=== PATIENT | female | born 1965 | race Caucasian/White ===

== ENCOUNTER 2020-09-10 13:34 | Observation (INO) | payer OTHER ==
--- OUTSIDE RECORDS SUMMARY | 2020-09-10 13:37 | XMS REPORT | Continuity of Care Document ---
:1965 Author Organization [facility] t Address [address] [place] [address] Care Team Providers Name Role Phone Juani Saldaña MD Attending Clinician Doctor Unassigned, Name Attending Clinician Unavailable Eulalia Sandoval Attending Clinician Problems This patient has no known problems. Allergies, Adverse Reactions, Alerts This patient has no known allergies or adverse reactions. Medications This patient has no known medications. Procedures This patient has no known procedures. Encounters Start End Encounter Admission Attending Care Care Encounter Source Date/Time Date/Time Type Type Clinicians Facility Department ID 2019-11-22 2019-11-22 Emergency CLOTILDE Saldaña [id number] 05:23:00 07:42:00 Arvind Gloria Bryce [id number] [place] [id number] [place] [id number] 2019-11-22 2019-11-22 Orders Doctor RIOS [id number] 00:00:00 00:00:00 Only UnassignedHAL [id number] [place] [facility] [id number] 2019-05-11 2019-05-11 Orders Doctor RIOS [id number] 00:00:00 00:00:00 Only UnassignedHAL [id number] [place] [facility] [id number] 2019-04-28 2019-04-28 Office CLOTILDE Mcfarland [id number] 14:21:09 14:36:09 Visit [facility] [id number] Surgical [id number] [place] [id number] [address] Results This patient has no known results.
--- NOTE | 2020-09-10 14:54 | RAD REPORT ---
EXAM DESCRIPTION: RAD - Chest Single View - 09/10/2020 2:39 pm CLINICAL HISTORY: Chest pain;Dyspnea Chest pain. COMPARISON: Chest Single View dated 05/22/2016; ABDOMEN 1 VIEW KUB dated 04/14/2013 FINDINGS: Portable technique limits examination quality. The lungs are grossly clear. The heart is normal in size. No displaced fractures. IMPRESSION: No acute intrathoracic process suspected.
[2020-09-10 15:13] LABS: Protime INR 1.01
[2020-09-10 15:15] LABS: Absolute Lymphocytes (CBC) 1.3 K/uL (0.7-4.9); Basophils % 0.3 % (0-1.3); Hematocrit 33.6 % (36.0-45.0); Lymphocytes % 25.2 % (15.3-44.8); MPV 8.2 fL (7.6-11.3); RBC Red Blood Cell Count 3.96 M/uL (3.86-4.86)
[2020-09-10 15:23] LABS: ALT/SGPT 21 U/L (12-78); AST/SGOT 14 U/L (15-37); Albumin 3.6 g/dL (3.4-5.0); Alkaline Phosphatase 70 U/L (45-117); BUN Blood Urea Nitrogen 11 mg/dL (7-18); Bicarbonate 29 mmol/L (21-32); Bilirubin Direct 0.1 mg/dL (0-0.2); Bilirubin Total 0.6 mg/dL (0.2-1.0); Glucose Level 108 mg/dL (74-106); Magnesium 2.2 mg/dL (1.8-2.4); NT PRO-BNP 264 pg/mL (<125); Protein, Total 7.2 g/dL (6.4-8.2); Sodium Level 140 mmol/L (136-145); Troponin (Emerg Dept Use Only) < 0.02 ng/mL (0.0-0.045)
--- NOTE | 2020-09-10 16:06 | RAD REPORT ---
EXAM DESCRIPTION: CT - Chest For Pe Angio - 09/10/2020 3:50 pm CLINICAL HISTORY: Chest pain. CHEST PAIN COMPARISON: MR BREAST BILAT W WO CONTRAST dated 01/03/2009 TECHNIQUE: CT angiogram of the pulmonary arteries was performed with MIP. All CT scans are performed using dose optimization technique as appropriate and may include automated exposure control or mA/KV adjustment according to patient size. FINDINGS: No evidence of pulmonary thromboembolism. No acute aortic finding demonstrated. The lungs are clear. No significant pericardial or pleural fluid. No concerning bony finding. IMPRESSION: No evidence of pulmonary thromboembolism. No acute lung findings.
--- NOTE | 2020-09-10 18:22 | ER ---
Nurse's Notes [facility] Name: Vanessa Haney Age: 54 yrs Sex: Female : 1965 Arrival Date: 09/10/2020 Time: 13:35 Bed 7 Private MD: Diagnosis: Chest pain, unspecified Presentation: 09/10 13:40 Chief complaint: Patient states: "I am having some chest pain and acid reflux, hurts to jd3 breath in, and a weird numbness on both my arms. the stomach pain and numbness started today, but the chest pain has been going on for a day or so.". Coronavirus screen: At this time, the client does not indicate any symptoms associated with coronavirus-19. Ebola Screen: Patient negative for fever greater than or equal to 101.5 degrees Fahrenheit, and additional compatible Ebola Virus Disease symptoms. Initial Sepsis Screen: Does the patient meet any 2 criteria? No. Patient's initial sepsis screen is negative. Does the patient have a suspected source of infection? No. Patient's initial sepsis screen is negative. Risk Assessment: Do you want to hurt yourself or someone else? Patient reports no desire to harm self or others. Onset of symptoms was September 09, 2020. 13:40 Method Of Arrival: Ambulatory [facility] 13:40 Acuity: LAUREN 3 jd3 13:47 Care prior to arrival: Medication(s) given: ASA, 81 mg, x 4. 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 - Social history:: Smoking status: Patient/guardian denies using tobacco, the patient reports quitting approximately 11 years ago. - Family history:: not pertinent. - Hospitalizations: : No recent hospitalization is reported. Screenin:44 Abuse screen: Denies threats or abuse. Denies injuries from another. Nutritional ph screening: No deficits noted. Tuberculosis screening: No symptoms or risk factors identified. Fall Risk None identified. Assessment: 14:53 General: Appears in no apparent distress. comfortable, well groomed, Behavior is calm, ph cooperative, appropriate for age, Reports fatigue for 2-3 days. Pain: Complains of pain in mid-sternal area Pain does not radiate. Pain began 1 day ago. Neuro: Level of Consciousness is awake, alert, obeys commands, Oriented to person, place, time, situation, Reports paresthesias in right arm and left arm. Cardiovascular: Reports chest pain, fatigue, nausea, shortness of breath, Denies palpitations, syncope, vomiting, Capillary refill < 3 seconds in bilateral fingers Patient's skin is warm and dry. Chest pain is located in substernal area. Respiratory: Reports shortness of breath at rest pain with respiration Airway is patent Respiratory effort is even, unlabored, Respiratory pattern is regular, symmetrical. GI: Reports nausea, Patient currently denies abdominal pain, vomiting. Derm: Skin is intact, is healthy with good turgor, Skin is pink, warm \\T\\ dry. 16:30 Reassessment: Patient appears in no apparent distress at this time. Patient and/or ph family updated on plan of care and expected duration. Pain level reassessed. Patient is alert, oriented x 3, equal unlabored respirations, skin warm/dry/pink. 18:07 Reassessment: Patient appears in no apparent distress at this time. Patient and/or ph family updated on plan of care and expected duration. Pain level reassessed. Patient is alert, oriented x 3, equal unlabored respirations, skin warm/dry/pink. Vital Signs: 13:46 BP 122 / 72; Pulse 65; Resp 16 S; Temp 97.3(TE); Pulse Ox 99% on R/A; Weight 83.01 kg jd3 (R); Height 5 ft. 7 in. (170.18 cm) (R); Pain 4/10; 14:30 BP 110 / 64; Pulse 56; Resp 16; Pulse Ox 99% on R/A; ph 15:45 BP 99 / 57; Pulse 54; Resp 18; Pulse Ox 98% on R/A; ph 16:41 BP 107 / 63; Pulse 51; Resp 18; Pulse Ox 100% on R/A; ph 18:07 BP 102 / 74; Pulse 51; Resp 16; Temp 97.5; Pulse Ox 98% on R/A; ph 20:55 BP 97 / 64; Pulse 69; Resp 16; Pulse Ox 100% on R/A; jm8 13:46 Body Mass Index 28.66 (83.01 kg, 170.18 cm) jd3 ED Course: 13:35 Patient arrived in ED. as 13:42 Triage completed. jd3 13:47 Arm band placed on. jd3 13:55 Kamron Cook MD is Attending Physician. rn 13:57 Gaby Carmen, JEANETTE is Primary Nurse. ph 14:38 XRAY Chest (1 view) In Process Unspecified. EDMS 15:36 PT-INR Sent. sv 15:36 NT PRO-BNP Sent. sv 15:36 Magnesium Sent. sv 15:36 LFT's Sent. sv 15:36 CBC with Diff Sent. sv 15:36 Basic Metabolic Panel Sent. sv 15:50 CT Chest For PE Angio In Process Unspecified. EDMS 16:44 Patient has correct armband on for positive identification. Bed in low position. Call ph light in reach. Side rails up X 1. flat ironer on. Pulse ox on. NIBP on. Door closed. Noise minimized. Warm blanket given. 16:44 Patient maintains SpO2 saturation greater than 95% on room air. ph 18:07 No provider procedures requiring assistance completed. ph 18:21 Homero Snyder is Hospitalizing Provider. rn 18:21 Som Whitlock DO is Hospitalizing Provider. rn 21:53 Patient admitted, IV remains in place. marshal Administered Medications: 19:25 Drug: Aspirin Chewable Tablet 324 mg Route: PO; marshal 20:59 Follow up: Response: No adverse reaction marshal Outcome: 18:21 Decision to Hospitalize by Provider. rn 21:39 Patient left the ED. rr5 21:53 Admitted to Med/surg accompanied by nurse, via stretcher, with chart, Report called to marshal Woodall RN 21:53 Condition: good 21:53 Instructed on the need for admit. Signatures: Dispatcher [employer] EDElena Howell RN RN sv Martinez, Amelia as Kamron Cook ph D, MD MD rn Hall, Patricia, RN RNavies, Jonathon, RN RN j Harjinder Pastrana, RN RN rr5 Homero Kim, RN RN jm8
--- NOTE | 2020-09-10 18:23 | EDPHYS ---
Physician Documentation [facility] Name: Vanessa Hanye Age: 54 yrs Sex: Female : 1965 Arrival Date: 09/10/2020 Time: 13:35 Bed 7 Private MD: ED Physician Kamron Cook HPI: 09/10 14:39 This 54 yrs old Female presents to ER via Ambulatory with complaints of Chest rn Pain, Arm Pain, Back Pain. 14:39 The patient or guardian reports chest pain that is located primarily in the substernal rn area. Onset: yesterday. The pain radiates to both arms, Associated signs and symptoms: Pertinent positives: cough, Pertinent negatives: lower extremity swelling, lightheadedness, near syncope, palpitations, syncope, vomiting. The chest pain is described as a pressure, sharp. Duration: The patient or guardian reports multiple episodes, that are intermittent. Modifying factors: The symptoms are alleviated by nothing. the symptoms are aggravated by deep breath. Severity of pain: At its worst the pain was moderate in the emergency department the pain has improved. The patient has experienced similar episodes in the past. The patient has not recently seen a physician. Reports 1-2 days of chest pain, substernal, radiates to back and assoc with numbness both arms, no trauma, no fever, + mild cough. No hx of dvt/PE. No abd pain. Feels like acid reflux acting up as well. . 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 - Social history:: Smoking status: Patient/guardian denies using tobacco, the patient reports quitting approximately 11 years ago. - Family history:: not pertinent. - Hospitalizations: : No recent hospitalization is reported. ROS: 14:39 Constitutional: Negative for fever, chills, and weight loss, Eyes: Negative for injury, rn pain, redness, and discharge, ENT: Negative for injury, pain, and discharge, Neck: Negative for injury, pain, and swelling, Cardiovascular: Negative for palpitations, and edema, Respiratory: Negative for wheezing Abdomen/GI: Negative for abdominal pain, nausea, vomiting, diarrhea, and constipation, Back: Negative for injury and pain, : Negative for injury, bleeding, discharge, and swelling, MS/Extremity: Negative for injury and deformity, Skin: Negative for injury, rash, and discoloration, Neuro: Negative for headache, weakness, and seizure. Exam: 14:39 Constitutional: This is a well developed, well nourished patient who is awake, alert, rn and in no acute distress. Head/Face: Normocephalic, atraumatic. Eyes: Periorbital areas with no swelling, redness, or edema. Cardiovascular: Regular rate and rhythm. No pulse deficits. Respiratory: No increased work of breathing, no retractions or nasal flaring. Abdomen/GI: Soft, non-tender Skin: Warm, dry with normal turgor. Normal color with no rashes, no lesions, and no evidence of cellulitis. MS/ Extremity: Pulses equal, no cyanosis. Neurovascular intact. Full, normal range of motion. Equal circumference. Neuro: Awake and alert, GCS 15, oriented to person, place, time, and situation. Cranial nerves II-XII grossly intact. Motor strength 5/5 in all extremities. Sensory grossly intact. Vital Signs: 13:46 BP 122 / 72; Pulse 65; Resp 16 S; Temp 97.3(TE); Pulse Ox 99% on R/A; Weight 83.01 kg jd3 (R); Height 5 ft. 7 in. (170.18 cm) (R); Pain 4/10; 14:30 BP 110 / 64; Pulse 56; Resp 16; Pulse Ox 99% on R/A; ph 15:45 BP 99 / 57; Pulse 54; Resp 18; Pulse Ox 98% on R/A; ph 16:41 BP 107 / 63; Pulse 51; Resp 18; Pulse Ox 100% on R/A; ph 18:07 BP 102 / 74; Pulse 51; Resp 16; Temp 97.5; Pulse Ox 98% on R/A; ph 20:55 BP 97 / 64; Pulse 69; Resp 16; Pulse Ox 100% on R/A; jm8 13:46 Body Mass Index 28.66 (83.01 kg, 170.18 cm) jd3 MDM: 13:56 Patient medically screened. rn 18:19 Differential diagnosis: acute myocardial infarction, acute pericarditis, anxiety, rn coronary artery disease costochondritis, pericarditis, pleurisy, pneumothorax, pulmonary embolus, stable angina, unstable angina. The patient was given aspirin in the Emergency Department. 18:20 Data reviewed: vital signs, nurses notes, lab test result(s), EKG, radiologic studies, rn CT scan, plain films, and as a result, I will admit patient. Counseling: I had a detailed discussion with the patient and/or guardian regarding: the historical points, exam findings, and any diagnostic results supporting the discharge/admit diagnosis, lab results, radiology results, the need for further work-up and treatment in the hospital. Admission orders: after a detailed discussion of the patient's condition and case, the admit orders are written by me. 09/10 14:17 Order name: Basic Metabolic Panel rn 09/10 14:17 Order name: CBC with Diff rn 09/10 14:17 Order name: LFT's rn 09/10 14:17 Order name: Magnesium rn 09/10 14:17 Order name: NT PRO-BNP rn 09/10 14:17 Order name: PT-INR rn 09/10 14:17 Order name: Troponin (emerg Dept Use Only); Complete Time: 15:27 09/10 14:17 Order name: Flu; Complete Time: 16:19 rn 09/10 14:17 Order name: Basic Metabolic Panel; Complete Time: 15:27 EDWV 09/10 14:17 Order name: CBC with Automated Diff; Complete Time: 15:27 EDWV 09/10 14:17 Order name: Liver (Hepatic) Function; Complete Time: 15:27 EDWV 09/10 14:17 Order name: Magnesium; Complete Time: 15:27 EDWV 09/10 14:17 Order name: NT PRO-BNP; Complete Time: 15:27 EDWV 09/10 14:17 Order name: XRAY Chest (1 view); Complete Time: 15:05 rn 09/10 14:17 Order name: EKG; Complete Time: 14:18 rn 09/10 14:17 Order name: EKG - Nurse/Tech; Complete Time: 14:20 rn 09/10 14:17 Order name: IV Saline Lock; Complete Time: 14:37 rn 09/10 14:17 Order name: Labs collected and sent; Complete Time: 14:37 rn 09/10 14:17 Order name: O2 Per Protocol; Complete Time: 14:37 rn 09/10 14:17 Order name: O2 Sat Monitoring; Complete Time: 14:37 rn 09/10 14:17 Order name: CT Chest For PE Angio; Complete Time: 16:19 rn 09/10 14:17 Order name: Protime (+INR); Complete Time: 15:27 EDMS 09/10 17:56 Order name: SARS-COV-2 RT PCR; Complete Time: 18:00 EDMS Administered Medications: 19:25 Drug: Aspirin Chewable Tablet 324 mg Route: PO; jm8 20:59 Follow up: Response: No adverse reaction 8 Disposition: 09/10/20 18:21 Hospitalization ordered by Som Whitlock for Observation. Preliminary diagnosis is Chest pain, unspecified. - Bed requested for Telemetry/MedSurg (observation). - Status is Observation. rr5 - Condition is Stable. - Problem is new. - Symptoms have improved. Signatures: Dispatcher [employer] EDWV Kylah Gonzalez RN RN Kamron Vieira MD MD rn Davies, Jonathon, RN RN jd3 Harjinder Pastrana RN RN rr5 Homero Kim RN RN jm8 Corrections: (The following items were deleted from the chart) 16:31 14:18 CORONAVIRUS+MR.LAB.BRZ ordered. EDWV EDMS 19:41 18:21 Hospitalization Ordered by Som Whitlock DO for Observation. Preliminary mw diagnosis is Chest pain, unspecified. Bed requested for Telemetry/MedSurg (observation). Status is Observation. Condition is Stable. Problem is new. Symptoms have improved. rn 21:39 19:41 09/10/2020 18:21 Hospitalization Ordered by Som Whitlock DO for Observation. rr5 Preliminary diagnosis is Chest pain, unspecified. Bed requested for Telemetry/MedSurg (observation). Status is Observation. Condition is Stable. Problem is new. Symptoms have improved. mw
--- NOTE | 2020-09-10 19:14 | P.HP ---
Certification for Inpatient Patient admitted to: Observation With expected LOS: <2 Midnights Patient will require the following post-hospital care: None Practitioner: I am a practitioner with admitting privileges, knowledge of patient current condition, hospital course, and medical plan of care. Services: Services provided to patient in accordance with Admission requirements found in Title 42 Section 412.3 of the Code of Federal Regulations <Devon Marion - Last Filed: 09/10/20 19:11> Patient admitted to: Observation <Som Whitlock - Last Filed: 09/11/20 05:46> Patient History Date of Service: 09/10/20 Primary Care Provider: Dr. Siddiqi Reason for admission: Chest pain History of Present Illness: 54-year-old female with history of hyperlipidemia, breast cancer status post bilateral mastectomy presents emergency department for chest pain. Patient reports he has had ongoing chest pain whenever she is very stressed out or anxious over the course of the last few years but had an episode last night and this morning that was worse than normal associated with dizziness, shortness of breath, bilateral arm pain, pain also radiates to back, described as pressure-like. Patient had a coronary angiogram in 2008 that was reportedly normal. Patient evaluated in the emergency department, EKG without acute changes, labs unremarkable initial troponin negative chest x-ray unremarkable CT PE protocol negative for dissection/PE. ED provider wishes to admit for chest pain rule out. - Past Medical/Surgical History -: breast cancer -: anxiety -: osteoporosis -: Hyperlipidemia -: dbl mastectomy -: appy -: hyterectomy Psychosocial/ Personal History: Lives with family - Social History Smoking Status: Never smoker Alcohol use: No CD- Drugs: No Caffeine use: Yes Place of Residence: Home <DoniDevon - Last Filed: 09/10/20 19:11> Date of Service: 09/11/20 - Family History Family History: Reviewed- Non-Contributory <Som Whitlock - Last Filed: 09/11/20 05:46> Allergies azithromycin Allergy (Verified 09/11/20 02:45) Itching/Hives/Rash levofloxacin [From Levaquin] Allergy (Verified 09/11/20 02:45) Itching/Hives/Rash Penicillins Allergy (Verified 05/09/12 15:37) Anaphylaxis Home Medications: ALPRAZolam [Xanax*] 0.25 mg PO QID 09/11/20 Albuterol Inhaler [Ventolin Inhaler*] 1 puff IH PRN PRN 09/11/20 Buprenorphine HCl/Naloxone HCl [Suboxone 8 mg-2 mg Sl Film] 8 mg SL BID 09/11/20 Dextroamphetamine/Amphetamine [Adderall 15 mg Tablet] 15 mg PO PRN PRN 09/11/20 Sumatriptan [Imitrex*] 50 mg PO PRN PRN 09/11/20 Review of Systems 10-point ROS is otherwise unremarkable Cardiovascular: Chest Pain, As per HPI <Devon Marion - Last Filed: 09/10/20 19:11> Physical Examination - Physical Exam General: Alert, In no apparent distress HEENT: Atraumatic, PERRLA, Mucous membr. moist/pink Neck: Supple, 2+ carotid pulse no bruit, No LAD Respiratory: Clear to auscultation bilaterally, Normal air movement Cardiovascular: Regular rate/rhythm, Normal S1 S2 Gastrointestinal: Normal bowel sounds, No tenderness Musculoskeletal: No tenderness Integumentary: No rashes Neurological: Normal speech, Normal strength at 5/5 x4 extr, Normal tone, Normal affect - Studies Laboratory Data (last 24 hrs) 09/10/20 14:25: PT 11.6, INR 1.01 09/10/20 14:25: WBC 5.30, Hgb 11.6 L, Hct 33.6 L, Plt Count 257 09/10/20 14:25: Sodium 140, Potassium 4.0, BUN 11, Creatinine 0.53 L, Glucose 108 H, Magnesium 2.2, Total Bilirubin 0.6, AST 14 L, ALT 21, Alkaline Phosphatase 70 Microbiology Data (last 24 hrs): 09/10/20 14:30 Nasopharnyx Influenza Type A Antigen Screen - Final 09/10/20 14:30 Nasopharnyx Influenza Type B Antigen Screen - Final <Devon Marion - Last Filed: 09/10/20 19:11> - Studies Laboratory Data (last 24 hrs) 09/10/20 14:25: PT 11.6, INR 1.01 09/10/20 14:25: WBC 5.30, Hgb 11.6 L, Hct 33.6 L, Plt Count 257 09/10/20 14:25: Sodium 140, Potassium 4.0, BUN 11, Creatinine 0.53 L, Glucose 108 H, Magnesium 2.2, Total Bilirubin 0.6, AST 14 L, ALT 21, Alkaline Phosphatase 70 Microbiology Data (last 24 hrs): 09/10/20 14:30 Nasopharnyx Influenza Type A Antigen Screen - Final 09/10/20 14:30 Nasopharnyx Influenza Type B Antigen Screen - Final <Som Whitlock - Last Filed: 09/11/20 05:46> Assessment and Plan - Plan Assessment Chest pain rule out ACS Plan Chest pain rule out ACS: Monitor on telemetry, trend troponins, cardiology consult to continue daily aspirin, statin therapy. Patient history of hype rlipidemia but reports she has not been on any medication recently as her levels were good without medication. Will recheck lipid panel, thyroid panel with morning labs. DVT prophylaxis Lovenox 40 mg subcutaneous once daily. Appreciate further input from cardiology. Discharge Plan: Home Plan to discharge in: 24 Hours - Advance Directives Does patient have a Living Will: No Does patient have a Durable POA for Healthcare: No - Code Status/Comfort Care Code Status Assessed: Yes (Full code) Critical Care: No Time Spent Managing Pts Care (In Minutes): 55 <Devon Marion - Last Filed: 09/10/20 19:11> - Plan agree with plan of care <Som Whitlock - Last Filed: 09/11/20 05:46>
[2020-09-10] MEDS ORDERED: ASPIRIN 81 MG CHEWABLE TABLET ONE (19:42)
[2020-09-10] MEDS ORDERED: ACETAMINOPHEN 500 MG TAB PO PRN (21:26)
[2020-09-10] MEDS ORDERED: ATORVASTATIN 40 MG TAB PO SCH (21:26)
[2020-09-10] MEDS ORDERED: ONDANSETRON 4 MG/2 ML VIAL IV PRN (21:26)
[2020-09-11 02:40] VITALS: BMI 28.6
[2020-09-11 04:22] LABS: Absolute Lymphocytes (CBC) 3.3 K/uL (0.7-4.9); Hematocrit 33.3 % (36.0-45.0)
[2020-09-11 04:27] LABS: Basophils % 0.5 % (0-1.3); MPV 8.3 fL (7.6-11.3); RBC Red Blood Cell Count 3.88 M/uL (3.86-4.86)
[2020-09-11 04:38] LABS: ALT/SGPT 18 U/L (12-78); AST/SGOT 14 U/L (15-37); Albumin 3.2 g/dL (3.4-5.0); Alkaline Phosphatase 65 U/L (45-117); BUN Blood Urea Nitrogen 12 mg/dL (7-18); Bicarbonate 29 mmol/L (21-32); Bilirubin Total 0.4 mg/dL (0.2-1.0); Glucose Level 99 mg/dL (74-106); HDL Cholesterol 51 mg/dL (40-60); LDL Cholesterol, Calculated 89 (<130); Magnesium 2.1 mg/dL (1.8-2.4); Potassium 3.5 mmol/L (3.5-5.1); Protein, Total 6.8 g/dL (6.4-8.2); Sodium Level 142 mmol/L (136-145); Troponin I < 0.02 ng/mL (0.0-0.045)
[2020-09-11 05:21] LABS: Blood Morphology Comment NOT SEEN (NOT SEEN); Platelet Estimate ADEQ
[2020-09-11] MEDS ORDERED: ALPRAZOLAM 0.25 MG TABLET PO PRN (06:04)
[2020-09-11] MEDS ORDERED: PANTOPRAZOLE 40MG TABLET PO SCH (06:30)
--- NOTE | 2020-09-11 08:50 | P.DS ---
Admission Date: 09/10/20 Discharge Date: 09/11/20 Primary Care Provider: Dr. Siddiqi Disposition: ROUTINE DISCHARGE Discharge Condition: GOOD Reason for Admission: Chest pain Consultations: Cardiology-Dr. Clement Procedures: COVID: Negative CXR: COMPARISON: Chest Single View dated 05/22/2016; ABDOMEN 1 VIEW KUB dated 04/14/2013 FINDINGS: Portable technique limits examination quality. The lungs are grossly clear. The heart is normal in size. No displaced fractures. IMPRESSION: No acute intrathoracic process suspected. CT chest: FINDINGS: No evidence of pulmonary thromboembolism. No acute aortic finding demonstrated. The lungs are clear. No significant pericardial or pleural fluid. No concerning bony finding. IMPRESSION: No evidence of pulmonary thromboembolism. No acute lung findings. Medical problem list: Chest pain, atypical Suspect GERD History of breast cancer with prior mastectomy Depression with anxiety Brief History of Present Illness: 54-year-old female with history of hyperlipidemia, breast cancer status post bilateral mastectomy presents emergency department for chest pain. Patient reports he has had ongoing chest pain whenever she is very stressed out or anxious over the course of the last few years but had an episode last night and this morning that was worse than normal associated with dizziness, shortness of breath, bilateral arm pain, pain also radiates to back, described as pressure-like. Patient had a coronary angiogram in 2008 that was reportedly normal. Patient evaluated in the emergency department, EKG without acute changes, labs unremarkable initial troponin negative chest x-ray unremarkable CT PE protocol negative for dissection/PE. Patient admitted for further evaluation and treatment. Hospital Course: Patient presented with chest pain. Cardiac enzymes unremarkable. No significant EKG changes noted. Patient was seen and evaluated by cardiology. No further work-up needed at this time. At discharge patient may follow-up with cardiology as an outpatient for cardiac work-up including outpatient echocardiogram and cardiac stress test. Chest pain atypical suspect GERD. At discharge patient may continue with Protonix 40 mg daily. If outpatient cardiac work-up unremarkable patient may benefit with GI evaluation as an outpatient. Patient with depression with anxiety. Patient takes Xanax as needed. Recommend follow-up with her PCP to further monitor and adjust medication. Vital Signs/Physical Exam: Temp Pulse Resp BP Pulse Ox 97.5 F 65 16 94/54 L 97 09/11/20 04:00 09/11/20 04:00 09/11/20 04:00 09/11/20 04:00 09/11/20 04:00 General: Alert, In no apparent distress, Oriented x3, Cooperative HEENT: Atraumatic Neck: Supple Respiratory: Clear to auscultation bilaterally, Normal air movement Cardiovascular: Normal pulses, Regular rate/rhythm Gastrointestinal: Normal bowel sounds, Soft and benign, Non-distended, No tenderness, No masses, No rebound, No guarding Musculoskeletal: No erythema, No tenderness, No warmth Integumentary: No tenderness/swelling Neurological: Normal speech, Normal strength at 5/5 x4 extr, Normal tone, Normal affect Laboratory Data at Discharge: WBC 6.70 K/uL (4.3-10.9) D 09/11/20 03:34 Hgb 11.2 g/dL (12.0-15.0) L 09/11/20 03:34 Hct 33.3 % (36.0-45.0) L 09/11/20 03:34 Plt Count 247 K/uL (152-406) 09/11/20 03:34 PT 11.6 SECONDS (9.5-12.5) 09/10/20 14:25 INR 1.01 09/10/20 14:25 Sodium 142 mmol/L (136-145) 09/11/20 03:34 Potassium 3.5 mmol/L (3.5-5.1) 09/11/20 03:34 BUN 12 mg/dL (7-18) 09/11/20 03:34 Creatinine 0.53 mg/dL (0.55-1.3) L 09/11/20 03:34 Glucose 99 mg/dL (74-106) 09/11/20 03:34 Magnesium 2.1 mg/dL (1.8-2.4) 09/11/20 03:34 Total Bilirubin 0.4 mg/dL (0.2-1.0) 09/11/20 03:34 AST 14 U/L (15-37) L 09/11/20 03:34 ALT 18 U/L (12-78) 09/11/20 03:34 Alkaline Phosphatase 65 U/L (45-117) 09/11/20 03:34 Troponin I < 0.02 ng/mL (0.0-0.045) 09/11/20 03:34 Triglycerides 114 mg/dL (<150) 09/11/20 03:34 Cholesterol 163 mg/dL (<200) 09/11/20 03:34 HDL Cholesterol 51 mg/dL (40-60) 09/11/20 03:34 Cholesterol/HDL Ratio 3.20 09/11/20 03:34 Home Medications: ALPRAZolam [Xanax*] 0.25 mg PO QID 09/11/20 Albuterol Inhaler [Ventolin Inhaler*] 1 puff IH PRN PRN 09/11/20 Buprenorphine HCl/Naloxone HCl [Suboxone 8 mg-2 mg Sl Film] 8 mg SL BID 09/11/20 Dextroamphetamine/Amphetamine [Adderall 15 mg Tablet] 15 mg PO PRN PRN 09/11/20 Pantoprazole [Protonix Tab*] 40 mg PO DAILYAC #30 tab 09/11/20 Sumatriptan [Imitrex*] 50 mg PO PRN PRN 09/11/20 New Medications: Pantoprazole [Protonix Tab*] 40 mg PO DAILYAC #30 tab Physician Discharge Instructions: Patient presented with chest pain. Cardiac enzymes unremarkable. No significant EKG changes noted. Patient was seen and evaluated by cardiology. No further work-up needed at this time. At discharge patient may follow-up with cardiology as an outpatient for cardiac work-up including outpatient echocardiogram and cardiac stress test. Chest pain atypical suspect GERD. At discharge patient may continue with Protonix 40 mg daily. If outpatient cardiac work-up unremarkable patient may benefit with GI evaluation as an outpatient. Patient with depression with anxiety. Patient takes Xanax as needed. Recommend follow-up with her PCP to further monitor and adjust medication Diet: AHA Activity: Ad emily Followup: Dylan Cabezas PA [Primary Care Provider] - Time spent managing pt's care (in minutes): 55
[2020-09-11] MEDS ORDERED: ASPIRIN EC 81 MG TAB PO SCH (09:00)
[2020-09-11] MEDS ORDERED: ENOXAPARIN 40 MG/0.4 ML SQ SCH (09:00)
[2020-09-11] MEDS ORDERED: POTASSIUM CL SA 10 MEQ TAB PO ONE (09:00)
[2020-09-11 09:24] VITALS: O2SAT 99
[2020-09-11 12:30] VITALS: BP 104/60; TEMP 97.4
--- NOTE | 2020-09-12 07:30 | EKG ---
Test Date: 2020-09-10 Test Time: 13:52:01 Customer Care Voice Consultant: KELLY MEASUREMENT RESULTS: Intervals: Rate: 66 RI: 124 QRSD: 74 QT: 404 QTc: 423 [place]: P: 50 RI: 124 QRS: 67 T: 64 INTERPRETIVE STATEMENTS: Normal sinus rhythm Normal ECG Compared to ECG 05/23/2016 06:30:56 Sinus arrhythmia no longer present Electronically Signed On 09-12-20 07:26:53 CDT by Tyrone Clement
--- NOTE | 2020-09-12 09:15 | ECHO ---
HEIGHT: 5 ft 7 in WEIGHT: 183 lb 0 oz DATE OF STUDY: 09/11/[address]: Tyrone Clement MD 2-DIMENSIONAL: YES M.MODE: YES DOPPLER: YES COLOR FLOW: YES TDS: NO PORTABLE: NO DEFINITY: NO BUBBLE STUDY: NO DIAGNOSIS: [*] CARDIAC HISTORY: CATHERIZATION: SURGERY: PROSTHETIC VALVE: PACEMAKER: MEASUREMENTS (cm) DIASTOLIC (NORMALS) SYSTOLIC (NORMALS) IVSd 0.7 (0.6-1.2) LA Diam 3.1 (1.9-4.0) LVEF 65% LVIDd 5.2 (3.5-5.7) LVIDs 3.3 (2.0-3.5) %FS 36% LVPWd 0.9 (0.6-1.2) Ao Diam 2.6 (2.0-3.7) 2 DIMENSIONAL ASSESSMENT: RIGHT ATRIUM: NORMAL LEFT ATRIUM: NORMAL RIGHT VENTRICLE: NORMAL LEFT VENTRICLE: NORMAL TRICUSPID VALVE: NORMAL MITRAL VALVE: NORMAL PULMONIC VALVE: NORMAL AORTIC VALVE: NORMAL PERICARDIAL EFFUSION: NONE AORTIC ROOT: NORMAL LEFT VENTRICULAR WALL MOTION: NORMAL. DOPPLER/COLOR FLOW: NORMAL. COMMENTS: NORMAL 2D ECHO WITH DOPPLER. NO WALL MOTION ABNORMALITY TECHNOLOGIST: CHERYLE HOWARD
--- NOTE | 2020-09-12 19:33 | CON ---
Date of Consultation: 09/11/2020 Reason For Consultation: Atypical chest pain. History Of Present Illness: Ms. Haney is a 54-year-old female, who came in with complaining of chest pain, arm pain, back pain, more physically located in the epigastric area, radiating to both ar ms, has been going on for 4 days. She has had some cough, but denied any PND, orthopnea, pedal edema , palpitations, or syncope. She describes the pain as sharp, stabbing and occasionally pressure that is not related to physical activity. Her symptoms actually got worse with taking a deep breath. Love s had similar episodes in the past. Denied any fever or chills or cough. Past Medical History: Includes anxiety, breast cancer, and osteoporosis. Medications: At home include Adderall and alprazolam. She does not take any cardiac medications. Past Surgical History: Left mastectomy, right appendectomy, and hysterectomy. Review of Systems: Negative. Social History: Negative. Family History: Negative. Allergies: SHE IS ALLERGIC TO LEVAQUIN, PENICILLIN, AND AZITHROMYCIN. Physical Examination: Vital Signs: Stable. She was afebrile. HEENT: Negative. Neck: Supple without any bruit, lymphadenopathy, JVD, or thyromegaly. Chest: Clear to auscultation and percussion. Cardiac: Revealed a regular rhythm and rate. No murmurs, gallops, or rubs. Abdomen: Benign. Extremities: Revealed no clubbing, cyanosis, or edema. Diagnostic Data: EKG was normal. Chest x-ray was normal. Troponin is normal. BNP was normal. The echocardiogram was normal. Impression And Plan: Ms. Haney is a 54-year-old with very atypical chest pain, very low cardiac risk profile. She is already ruled out for myocardial infarction. She has a normal EKG, normal ning st x-ray, normal troponin, and normal BNP. I think I am comfortable with her going home and I think we can make an arrangement for her as an outpatient stress test. HILARIO/BREANA Voice ID: [id number] Report ID: [id number]
== END 2020-09-11 13:40 | disposition home or self-care (01) ==
LOC: ER 13:34 → ERHOLD 19:13 → 4TH 20:43
PROVIDERS: ADMIT Family Medicine; ATTEND Family Medicine
DX: R07.89 Other chest pain (principal); Z85.3 Personal history of malignant neoplasm of breast; F41.8 Other specified anxiety disorders; M81.0 Age-related osteoporosis without current pathological fracture; E78.5 Hyperlipidemia, unspecified; Z20.822 Contact with and (suspected) exposure to COVID-19
CPT/HCPCS: 36415; 71045; 71275; 80048; 80053; 80061; 80076; 83735; 83880; 84439; 84443; 84484; 85025; 85610; 87804; 93005; 93306; 99285; G0378; J1650; Q9967; U0003

== ENCOUNTER 2021-08-09 16:52 | Emergency (ER) | payer OTHER ==
--- OUTSIDE RECORDS SUMMARY | 2021-08-09 16:54 | XMS REPORT | Continuity of Care Document ---
:1965 Author Organization [facility] t Address [address] [place] [address] Dr. Sh[address]. [address] [place] [address] Care Team Providers Name Role Phone MATTHEWSANDEEP Sean Primary Care Physician Unavailable Eulalia MCFARLAND Attending Clinician Unavailable MANA Attending Clinician Unavailable Pillo Attending Clinician Unavailable Juani Saldaña MD Attending Clinician Doctor Unassigned, Name Attending Clinician Unavailable Eulalia Sandoval Attending Clinician KISHA Attending Clinician Unavailable MANA Admitting Clinician Unavailable Pillo Admitting Clinician Unavailable Payers Payer Name Policy Type Policy Number Effective Date Expiration Date S abe MEDICARE PART A [id number] 2010 \\T\\ B 00:00:00 [place]: [id number] 2010 NOVSpontactsS Syntricity 00:00:00 Problems Condition Condition Condition Status Onset Resolution Last Treating Co mments Source Name Details Category Date Date Treatment Clinician Date No known No known Disease NPI:1 83 active active [id number] problems problems Allergies, Adverse Reactions, Alerts Allergy Allergy Status Severity Reaction(s) Onset Inactive Treating Comm ents Source Name Type Date Date Clinician Azithrom Propensi Active Rash 2020-0 NPI:18 3 ycin ty to 04-15 1970725 adverse 00:00: reaction 00 s Penicill Propensi Active Swelling 2020-0 NPI: 183 ins ty to [phone] adverse 00:00: reaction 00 s Quinolon Propensi Active Hives 2020-0 NPI:18 3 es ty to 04-15 [id number] adverse 00:00: reaction 00 s Sertrali Propensi Active Hives 2020-0 NPI:18 3 ne ty to 1-10 [id number] adverse 00:00: reaction 00 s AZITHROM DRUG Active Rash NPI:183 YCIN INGREDI 1-10 [id number] 00:00: 00 PENICILL Drug Active Swelling NPI:18 3 INS Class 1-10 [id number] 00:00: 00 QUINOLON Drug Active Hives NPI:183 ES Class 1-10 [id number] 00:00: 00 SERTRALI DRUG Active Hives NPI:183 NE INGREDI 1-10 [id number] 00:00: 00 Social History Social Habit Start Date Stop Date Quantity Comments Source Exposure to Not sure NPI:[id number] SARS-CoV-2 (event) Sex Assigned At NPI:[id number] Tobacco use and 2019-04-28 2019-04-28 Never used NPI:[id number] exposure 00:00:00 00:00:00 Smoking Status Start Date Stop Date Source Never smoker Medications Ordered Filled Start Stop Current Ordering Indication Dosage Frequency Signature Comments Components Source Medication Medication Date Date Medication? Clinician (SIG) Name Name HYDROcodone 2020- No 1{tbl} 1 tablet, NPI:183 -acetaminop 11-21-18 Oral, [id number] 1 hen (NORCO) 13:30: 12:34 ONCE, 1 10-325 mg 00 :00 dose, Tue tablet 1 11/22/19 at tablet 0830, Routine ketorolac 2019- No 30mg 30 mg, NPI:1 83 (TORADOL) 11-21-18 Slow IV [id number] 1 injection 11:45: 10:44 Push, 30 mg 00 :00 ONCE, 1 dose, 11/22/19 at 0645, BRITTNY
Fa culty member approving Restricted medication : ARVIND SALDAÑA tamsulosin 2019- Yes [id number] .4mg Take 1 NPI:183 0.4 mg 24 -18 capsule by 1318 781 hr capsule 00:00: mouth at 00 bedtime. Nitrofurant 2019- 2020- No [id number] 100mg Take 1 NPI:183 oin&Nit. 11-21 08- capsule by 1318 781 Macrocryst 00:00: 04:59 mouth 2 (MACROBID) 00 :00 (two) 100 mg times capsule daily for 7 days. ketorolac 2020-0 2020- No [id number] 10mg Take 1 NPI:183 10 mg 8-18 08-24 tablet by [id number] tablet 00:00: 04:59 mouth 00 :00 every 6 (six) hours as needed for Pain (scale 4-6) for up to 5 days. montelukast 2020-0 Yes Singulair N PI:183 (SINGULAIR) 1-23 10 mg [id number] 10 mg 20:29: tablet tablet 27 Take 1 tablet as needed by oral route. simvastatin 2020-0 Yes simvastati NPI:183 20 mg 1-23 n 20 mg [id number] tablet 20:29: tablet 27 albuterol 2020-0 Yes 3mL 3 mL. NPI:183 1.25 mg/3 1-23 [id number] mL 20:29: nebulizer 27 solution albuterol 2020-0 Yes ProAir HFA SENIOR BEHAVIORAL SCIENTIST I:183 (PROAIR 04-28 90 [id number] HFA) 90 20:29: mcg/actuat mcg/actuati 27 ion on inhaler aerosol inhaler Inhale 2 puffs every 4 hours by inhalation route as needed for 30 days. alendronate 2020-0 Yes alendronat NPI:183 70 mg 1-23 e 70 mg [id number] tablet 20:29: tablet 27 montelukast 2020-0 Yes Singulair N PI:183 (SINGULAIR) 1-23 10 mg [id number] 10 mg 20:29: tablet tablet 27 Take 1 tablet as needed by oral route. simvastatin 2020-0 Yes simvastati NPI:183 20 mg 1-23 n 20 mg [id number] tablet 20:29: tablet 27 albuterol 2020-0 Yes 3mL 3 mL. NPI:183 1.25 mg/3 1-23 [id number] mL 20:29: nebulizer 27 solution albuterol 2020-0 Yes ProAir HFA SENIOR BEHAVIORAL SCIENTIST I:183 (PROAIR 04-28 90 [id number] HFA) 90 20:29: mcg/actuat mcg/actuati 27 ion on inhaler aerosol inhaler Inhale 2 puffs every 4 hours by inhalation route as needed for 30 days. alendronate 2020-0 Yes alendronat NPI:183 70 mg 1-23 e 70 mg [id number] tablet 20:29: tablet 27 montelukast 2020-0 Yes Singulair N PI:183 (SINGULAIR) 1-23 10 mg [id number] 10 mg 20:29: tablet tablet 27 Take 1 tablet as needed by oral route. simvastatin 2020-0 Yes simvastati NPI:183 20 mg 1-23 n 20 mg [id number] tablet 20:29: tablet 27 albuterol 2020-0 Yes 3mL 3 mL. NPI:183 1.25 mg/3 1-23 [id number] mL 20:29: nebulizer 27 solution albuterol 2020-0 Yes ProAir HFA SENIOR BEHAVIORAL SCIENTIST I:183 (PROAIR 04-28 90 [id number] HFA) 90 20:29: mcg/actuat mcg/actuati 27 ion on inhaler aerosol inhaler Inhale 2 puffs every 4 hours by inhalation route as needed for 30 days. alendronate 2020-0 Yes alendronat NPI:183 70 mg 1-23 e 70 mg [id number] tablet 20:29: tablet 27 montelukast 2020-0 Yes Singulair N PI:183 (SINGULAIR) 1-23 10 mg [id number] 10 mg 20:29: tablet tablet 27 Take 1 tablet as needed by oral route. simvastatin 2020-0 Yes simvastati NPI:183 20 mg 1-23 n 20 mg [id number] tablet 20:29: tablet 27 albuterol 2020-0 Yes 3mL 3 mL. NPI:183 1.25 mg/3 1-23 [id number] mL 20:29: nebulizer 27 solution albuterol 2020-0 Yes ProAir HFA SENIOR BEHAVIORAL SCIENTIST I:183 (PROAIR 04-28 90 [id number] HFA) 90 20:29: mcg/actuat mcg/actuati 27 ion on inhaler aerosol inhaler Inhale 2 puffs every 4 hours by inhalation route as needed for 30 days. alendronate 2020-0 Yes alendronat NPI:183 70 mg 1-23 e 70 mg [id number] tablet 20:29: tablet 27 montelukast 2020-0 Yes Singulair N PI:183 (SINGULAIR) 1-23 10 mg [id number] 10 mg 20:29: tablet tablet 27 Take 1 tablet as needed by oral route. simvastatin 2020-0 Yes simvastati NPI:183 20 mg 04-28 n 20 mg [id number] tablet 20:29: tablet 27 albuterol 2020-0 Yes 3mL 3 mL. NPI:183 1.25 mg/3 04-28 [id number] mL 20:29: nebulizer 27 solution albuterol 2020-0 Yes ProAir HFA SENIOR BEHAVIORAL SCIENTIST I:183 (PROAIR 04-28 90 [id number] HFA) 90 20:29: mcg/actuat mcg/actuati 27 ion on inhaler aerosol inhaler Inhale 2 puffs every 4 hours by inhalation route as needed for 30 days. alendronate 2020-0 Yes alendronat NPI:183 70 mg 23 e 70 mg [id number] tablet 20:29: tablet 27 VENTOLIN 2020-0 Yes NPI:183 HFA 90 1-13 [id number] mcg/actuati 00:00: on inhaler 00 VENTOLIN 2020-0 Yes NPI:183 HFA 90 1-13 [id number] mcg/actuati 00:00: on inhaler 00 VENTOLIN 2020-0 Yes NPI:183 HFA 90 1-13 [id number] mcg/actuati 00:00: on inhaler 00 VENTOLIN 2020-0 Yes NPI:183 HFA 90 1-13 [id number] mcg/actuati 00:00: on inhaler 00 VENTOLIN 2020-0 Yes NPI:183 HFA 90 1-13 [id number] mcg/actuati 00:00: on inhaler 00 ALPRAZolam 2020-0 Yes NPI:183 1 mg tablet 04-12 [id number] 00:00: 00 ALPRAZolam 2020-0 Yes NPI:183 1 mg tablet 04-12 [id number] 00:00: 00 ALPRAZolam 2020-0 Yes NPI:183 1 mg tablet 04-12 [id number] 00:00: 00 ALPRAZolam 2020-0 Yes NPI:183 1 mg tablet 04-12 [id number] 00:00: 00 ALPRAZolam 2020-0 Yes NPI:183 1 mg tablet 04-12 [id number] 00:00: 00 Vital Signs Vital Name Observation Time Observation Value Comments Source Systolic blood pressure 2019-11-22 12:00:00 126 mm[Hg] Diastolic blood 2019-11-22 12:00:00 74 mm[Hg] NPI:1 [id number] pressure Heart rate 2019-11-22 12:00:00 70 /min NPI:1831 [id number] Respiratory rate 2019-11-22 12:00:00 20 /min Oxygen saturation in 2019-11-22 12:00:00 100 /min Arterial blood by Pulse oximetry Body temperature 2019-11-22 10:31:00 35.56 Katelin Body height 2019-11-22 10:31:00 170.2 cm NPI:1831 [id number] Body weight 2019-11-22 10:31:00 74.844 kg NPI:1831 [id number] BMI 2019-11-22 10:31:00 25.84 kg/m2 NPI:1831 457924 Systolic blood pressure 2019-11-22 12:00:00 126 mm[Hg] Diastolic blood 2019-11-22 12:00:00 74 mm[Hg] NPI:1 [id number] pressure Heart rate 2019-11-22 12:00:00 70 /min NPI:1831 234952 Respiratory rate 2019-11-22 12:00:00 20 /min Oxygen saturation in 2019-11-22 12:00:00 100 /min Arterial blood by Pulse oximetry Body temperature 2019-11-22 10:31:00 35.56 Katelin Body height 2019-11-22 10:31:00 170.2 cm NPI:1831 341270 Body weight 2019-11-22 10:31:00 74.844 kg NPI:1831 611806 BMI 2019-11-22 10:31:00 25.84 kg/m2 NPI:1831 195349 Systolic blood pressure 2019-04-28 20:22:00 107 mm[Hg] Diastolic blood 2019-04-28 20:22:00 68 mm[Hg] NPI:1 [id number] pressure Heart rate 2019-04-28 20:22:00 76 /min NPI:1831 842359 Body height 2019-04-28 20:22:00 170.2 cm NPI:1831 974841 Body weight 2019-04-28 20:22:00 78.926 kg NPI:1831 304671 BMI 2019-04-28 20:22:00 27.25 kg/m2 NPI:1831 308486 Systolic blood pressure 2019-04-28 20:22:00 107 mm[Hg] Diastolic blood 2019-04-28 20:22:00 68 mm[Hg] NPI:1 850339636 pressure Heart rate 2019-04-28 20:22:00 76 /min NPI:1831 916696 Body height 2019-04-28 20:22:00 170.2 cm NPI:1831 956102 Body weight 2019-04-28 20:22:00 78.926 kg NPI:1831 715205 BMI 2019-04-28 20:22:00 27.25 kg/m2 NPI:1831 580475 Procedures Procedure Date / Time Performed Performing Clinician Livier e CT ABDOMEN PELVIS WO 2019-11-22 11:15:52 Arvind Saldaña NPI:109 [id number] CONTRAST BASIC METABOLIC PANEL (NA, 2019-11-22 10:36:00 Arvind Saldaña N PI:[id number] K, CL, CO2, GLUCOSE, BUN, CREATININE, CA) CBC WITH DIFF 2019-11-22 10:36:00 Arvind Saldaña NPI:[id number] URINALYSIS 2019-11-22 10:35:00 Arvind Saldaña NPI:[id number] NOTICE OF PRIVACY 2019-11-22 10:20:26 Doctor Unassigned, No PRACTICES Name CONSENT/REFUSAL FOR 2019-11-22 10:19:14 Doctor Unassigned, No SENIOR BEHAVIORAL SCIENTIST I:[id number] DIAGNOSIS AND TREATMENT Name AUTHORIZATION FOR RELEASE 2019-05-11 06:01:00 Doctor Unassigned, No OF PHI Name Encounters Start End Encounter Admission Attending Care Care Encounter Source Date/Time Date/Time Type Type Clinicians Facility Department ID 2021-02-01 Emergency [facility] [id number] NPI:183 12:59:36 [id number] 9424-05-24 2021-08-27 Outpatient Erica MCFARLAND [facility] [id number] NPI:183 16:00:00 16:00:00 REGINALD [id number] 1 2021-05-01 2021-05-01 Outpatient ROGER_ANSLEY HOGAN [address] [place] 04:40:00 04:40:00 VALE 0126 da [facility] h Program 2020-10-03 2020-10-03 Outpatient [facility] [id number] [place] 12:14:00 12:14:00 0630 [facility] 2019-11-22 2019-11-22 Emergency [facility] [id number] NPI:183 05:23:00 07:42:00 Arvind Wu 350.1.13.10 1 [id number] [place] 4.2.7.2.686 [place] [id number] 084 2019-11-22 2019-11-22 Emergency [facility] [id number] 05:23:00 07:42:00 Arvind Wu 350.1.13.10 [place] 4.2.7.2.686 [place] [id number] 2019-11-22 2019-11-22 Orders Doctor RIOS [id number] NPI:183 00:00:00 00:00:00 Only Unassigned, HAL 350.1.13.10 [id number] [facility] 4.2.7.2.686 [id number] 009 2019-11-22 2019-11-22 Orders Doctor RIOS [id number] 00:00:00 00:00:00 Only Unassigned, HAL 350.1.13.10 [facility] 4.2.7.2.686 [id number] 009 2019-05-11 2019-05-11 Orders Doctor RIOS [id number] 00:00:00 00:00:00 Only Unassigned, HAL 350.1.13.10 [facility] 4.2.7.2.686 [id number] 009 2019-05-11 2019-05-11 Orders Doctor RIOS [id number] NPI:183 00:00:00 00:00:00 Only Unassigned, HAL 350.1.13.10 [id number] [facility] 4.2.7.2.686 [id number] 009 2019-04-28 2019-04-28 [facility] [id number] 14:21:09 14:36:09 Visit [facility] 350.1.13.10 Surgical 4.2.7.2.686 Specialti [id number] es [address] [place] 2019-04-28 2019-04-28 Office [facility] [id number] NPI:183 14:21:09 14:36:09 Visit [facility] 350.1.13.10 13 [id number] Surgical 4.2.7.2.686 Specialti [id number] es [address] [place] 2019-04-15 2019-04-15 [facility] [id number] NPI:183 19:36:52 23:59:00 DILAN [id number] 1 2017-03-10 2017-03-10 Outpatient [facility] [id number] [place] 12:26:00 12:26:00 0721 [facility] Results Test Description Test Time Test Comments Results Result Comments Source CBC WITH DIFF 2019-11-22 11:29:00 Test Item Value Reference Range Interpretation Comme nts WBC (test code = 6690-2) See_Comment [A utomated message] The system which ge nerated this result transmit olamide reference range: 4.30 - 1 1.10 10*3/?L. The reference r cuauhtemoc was not used to interpr et this result as normal/abnor mal. RBC (test code = 789-8) See_Comment [Au tomated message] The system which ge nerated this result transmit olamide reference range: 3.93 - 5 .25 10*6/?L. The reference r cuauhtemoc was not used to interpr et this result as normal/abnor mal. HGB (test code = 718-7) 12.5 g/dL 11.6-15 HCT (test code = 4544-3) 38.2 % 35.7-45.2 MCV (test code = 787-2) 89.5 fL 80.6-95.5 MCH (test code = 785-6) 29.3 pg 25.9-32.8 MCHC (test code = 786-4) 32.7 g/dL 31.6-35.1 RDW-SD (test code = 69750-3) 41.9 fL 39-49.9 RDW-CV (test code = 788-0) 12.8 % 12-15.5 PLT (test code = 777-3) See_Comment [Au tomated message] The system which ge nerated this result transmit olamide reference range: 166 - 35 8 10*3/?L. The reference range was not used to interpret th is result as normal/abnormal . MPV (test code = 21837-3) 9.5 fL 9.5-12.9 NRBC/100 WBC (test code = See_Comment [ Automated message] The 2026148151) system which ge nerated this result transmit olamide reference range: 0.0 - 10 .0 /100 WBCs. The reference r cuauhtemoc was not used to interpr et this result as normal/abnor mal. NRBC x10^3 (test code = <0.01 See_Comment [Au tomated message] The 9604966664) system which ge nerated this result transmit olamide reference range: 10*3/?L. The reference range was not u sed to interpret this result as normal/abnormal . GRAN MAT (NEUT) % (test code 28.8 % = 770-8) IMM GRAN % (test code = 0.20 % 5860519682) LYMPH % (test code = 736-9) 55.9 % MONO % (test code = 5905-5) 9.3 % EOS % (test code = 713-8) 5.2 % BASO % (test code = 706-2) 0.6 % GRAN MAT x10^3(ANC) (test 1.89 10*3/uL 1.88-7.09 code = 1782767507) IMM GRAN x10^3 (test code = <0.03 0-0.06 0904607258) LYMPH x10^3 (test code = 3.66 10*3/uL 1.32-3.29 H 731-0) MONO x10^3 (test code = 0.61 10*3/uL 0.33-0.92 742-7) EOS x10^3 (test code = 0.34 10*3/uL 0.03-0.39 711-2) BASO x10^3 (test code = 0.04 10*3/uL 0.01-0.07 704-7) REACT LYMPHS (test code = Rare 0350810221) Lab Interpretation (test Abnormal code = 04509-9) NPI:[id number] METABOLIC PANEL (NA, K, CL, CO2, GLUCOSE, BUN, CREATININE, CA)2019-11-22 11:04:00 Test Item Value Reference Range Interpretation Comments NA (test code = 139 mmol/L 135-145 4038655719) K (test code = 3.9 mmol/L 3.5-5 5140774562) CL (test code = 103 mmol/L 98-108 4204948786) CO2 TOTAL (test code = 29 mmol/L 23-31 2648086399) AGAP (test code = 2-16 3726711603) BUN (test code = 13 mg/dL 7-23 2992005054) GLUCOSE (test code = 114 mg/dL 70-110 H 0732330683) CREATININE (test code = 0.59 mg/dL 0.5-1.04 1345472602) CALCIUM (test code = 9.5 mg/dL 8.6-10.6 1240705965) eGFR Calculation mL/min/1.73m2 (Non-) (test code = 7127479789) eGFR Calculation mL/min/1.73m2 () (test code = 0714128275) JONATHAN (test code = JONATHAN) Association of Glomerular Filtration Rate (GFR) and Staging of Kidney Disease* + --+ --+ ------+| GFR (mL/min/1.73 m2) ?| With Kidney Damage ?| ?Without Kidney Damage+ --------+ --------+ +| ?>90 ?| ?Stage one ?| ? Normal ?+ ---+ ---+ -------+| ?60-89 ?| ?Stage two ?| ? Decreased GFR ? + --+ --+ ------+| ?30-59 ?| ?Stage three ?| ? Stage three ? + --+ --+ ------+| ?15-29 ?| ?Stage four ? | ? Stage four ?+ ---+ ---+ -------+| ?<15 (or dialysis) ? ?| ?Stage five ? | ? Stage five ?+ ---+ ---+ -------+ *Each stage assumes the associated GFR level has been in effect for at least three months. ?Stages 1 to 5, with or without kidney disease, indicate chronic kidney disease. Notes: Determination of stages one and two (with eGFR >59mL/min/1.73 m2) requires estimation of kidney damage for at least three months as defined by structural or functional abnormalities of the kidney, manifested by either:Pathological abnormalities or Markers of kidney damage (including abnormalities in the composition of the blood or urine or abnormalities in imaging tests). Lab Interpretation Abnormal (test code = 07987-9) NPI:[id number] 11:02:00 Test Item Value Reference Range Interpretation Comments APPEARANCE (test code = Cloudy Clear A 8092464029) COLOR (test code = Yellow Yellow 0039654154) PH (test code = 4.8-8.0 9105193275) SP GRAVITY (test code = 1.003-1.030 0727164062) GLU U QUAL (test code = Normal Normal 7625129241) BLOOD (test code = 1+ Negative A 9544079829) KETONES (test code = Negative Negative 0432541906) PROTEIN (test code = Negative Negative 2887-8) UROBILIN (test code = 2.0 mg/dL Normal A 9700527651) BILIRUBIN (test code = Negative Negative 4767903903) NITRITE (test code = Negative Negative 2232082647) LEUK NOLAN (test code = 75/uL Negative A 5757341254) RBC/HPF (test code = See_Comment H [Autom ated message] 4460292413) The system NextPage generated this result transmit olamide reference range : 0 - 3 HPF. The refe rence range was not u sed to interpret th is result as normal/abnormal . WBC/HPF (test code = See_Comment H [Autom ated message] 4185023866) The system NextPage generated this result transmit olamide reference range : 0 - 5 HPF. The refe rence range was not u sed to interpret th is result as normal/abnormal . BACTERIA (test code = Few Negative A 3603988134) MUCOUS (test code = Moderate Negative LPF A 2699394918) SQ EPITH (test code = HPF 7083316446) CA OXALATE (test code = See_Comment H [Au tomated message] 9227585913) The system NextPage generated this result transmit olamide reference range : <=1 HPF. The refere nce range was not u sed to interpret th is result as normal/abnormal . HYAL CAST (test code = See_Comment H [Aut omated message] 3414842779) The system NextPage generated this result transmit olamide reference range : <=2 LPF. The refere nce range was not u sed to interpret th is result as normal/abnormal . TRANS EPI (test code = See_Comment [Aut omated message] 9654915592) The system NextPage generated this result transmit olamide reference range : <=1 HPF. The refere nce range was not u sed to interpret th is result as normal/abnormal . GRAN CASTS (test code = See_Comment H [Au tomated message] 9577147807) The system NextPage generated this result transmit olamide reference range : <=1 LPF. The refere nce range was not u sed to interpret th is result as normal/abnormal . Lab Interpretation (test Abnormal code = 14113-5) "
[2021-08-09] MEDS ORDERED: IBUPROFEN 400 MG TAB ONE (17:25)
[2021-08-09] MEDS ORDERED: HYDROCODONE/APAP 7.5/325 MG TAB ONE (17:26)
--- NOTE | 2021-08-09 17:55 | RAD REPORT ---
EXAM DESCRIPTION: RAD - Hand Right 3 View - 08/09/2021 5:41 pm CLINICAL HISTORY: Right hand pain FINDINGS: No fracture or dislocation is seen. No bone or joint abnormality noted
--- NOTE | 2021-08-09 18:34 | ER ---
Nurse's Notes [facility] Name: Vanessa Haney Age: 55 yrs Sex: Female : 1965 Arrival Date: 08/09/2021 Time: 16:52 Bed 10 Private MD: Diagnosis: Pain in right hand Presentation: 08/09 17:02 Chief complaint: Patient states: was changing cord on s stove , taking nuts off back of iw stove, was using a lot of force, felt something pop in middle of right hand , happened last night , can't close middle finger. Coronavirus screen: At this time, the client does not indicate any symptoms associated with coronavirus-19. Ebola Screen: Patient negative for fever greater than or equal to 101.5 degrees Fahrenheit, and additional compatible Ebola Virus Disease symptoms Patient denies exposure to infectious person. Patient denies travel to an Ebola-affected area in the 21 days before illness onset. No symptoms or risks identified at this time. Initial Sepsis Screen: Does the patient meet any 2 criteria? No. Patient's initial sepsis screen is negative. Does the patient have a suspected source of infection? No. Patient's initial sepsis screen is negative. Risk Assessment: Do you want to hurt yourself or someone else? Patient reports no desire to harm self or others. Onset of symptoms was August 08, 2021. 17:02 Method Of Arrival: Ambulatory iw 17:02 Acuity: LAUREN 4 iw Historical: - Allergies: 17:04 Azithromycin; iw 17:04 Levaquin; iw 17:04 PENICILLINS; iw - PMHx: 17:04 Anxiety; breast cancer; Osteoporosis; iw - Immunization history:: Client reports receiving the 2nd dose of the Covid vaccine. - Social history:: Smoking status: unknown. Screenin:30 Abuse screen: Denies threats or abuse. Denies injuries from another. Nutritional ss screening: No deficits noted. Tuberculosis screening: Never had TB. Fall Risk None identified. Assessment: 17:30 General: Appears in no apparent distress. comfortable, Behavior is calm, cooperative. ss Pain: Pain: Complains of pain in R hand Pain currently is 7 out of 10 on a pain scale. Quality of pain is described as tender, Is continuous. Neuro: Green Agitation-Sedation Scale (RASS): 0 - Alert and Calm Level of Consciousness is awake, alert, obeys commands, Oriented to person, place, time, situation. Respiratory: Respiratory effort is even, unlabored. Derm: Skin is intact, is healthy with good turgor, Skin is dry, Skin is pink, warm \T\ dry. normal. Musculoskeletal: Circulation, motion, and sensation intact. Range of motion: intact in all extremities, Swelling absent. 18:30 Reassessment: Patient appears in no apparent distress at this time. Patient and/or ss family updated on plan of care and expected duration. Pain level reassessed. Vital Signs: 17:02 BP 131 / 83; Pulse 78; Resp 16; Temp 98.4; Pulse Ox 100% on R/A; iw ED Course: 16:52 Patient arrived in ED. ds1 17:04 Triage completed. iw 17:04 Arm band placed on. iw 17:07 Leonila De La O, JEANETTE is Primary Nurse. iw 17:08 Nii Burgos PA is PHCP. cp 17:08 Fela Stewart MD is Attending Physician. cp 17:43 XRAY Hand RIGHT 3 View In Process Unspecified. EDMS 18:30 Patient has correct armband on for positive identification. Bed in low position. Call ss light in reach. 18:32 Wiley Orlando MD is Referral Physician. cp 18:56 No provider procedures requiring assistance completed. Patient did not have IV access ss during this emergency room visit. 18:58 Orthoglass splint: Volar splint applied on right arm. ss Administered Medications: 17:23 Drug: Ibuprofen 800 mg Route: PO; ss 18:53 Follow up: Response: No adverse reaction ss 17:23 Not Given (Patient Refused): Hydrocodone-Acetaminophen (7.5 mg-325 mg) 1 tabs PO once; ss RASS on ADMIN: Combtv4, Very Agttd3, Agttd2, Rstlss1, AlertClm0, Drwsy-1, Lt Sdtn-2, Mod Sdtn-3, Dp Sdtn-4, UnArsble-5 Outcome: 18:33 Discharge ordered by MD. cp 18:56 Discharged to home ambulatory, with family. ss 18:56 Condition: good 18:56 Discharge instructions given to patient, Instructed on discharge instructions, follow up and referral plans. Demonstrated understanding of instructions, follow-up care, Prescriptions given X 1. 18:59 Patient left the ED. ss Signatures: Dispatcher [employer] EDOR Maryanne Oates ds1 Leonila De La O, RN RN iw Jennifer Hoyos RN RN ss Nii Burgos PA PA cp
--- NOTE | 2021-08-09 18:34 | EDPHYS ---
Physician Documentation [facility] Name: Vanessa Haney Age: 55 yrs Sex: Female : 1965 Arrival Date: 08/09/2021 Time: 16:52 Bed 10 Private MD: ED Physician Fela Stewart HPI: 08/09 17:20 This 55 yrs old Female presents to ER via Ambulatory with complaints of Hand Injury. cp 17:20 The patient or guardian reports decreased range of motion, pain. cp 17:20 The complaints affect the palm of right hand. cp 17:20 Context: The problem was sustained at home, resulted from unscrewing nuts off stove cp yesterday, felt "pop" in right hand. reports now having swelling and difficulty closing middle finger to make fist. Historical: - Allergies: 17:04 Azithromycin; iw 17:04 Levaquin; iw 17:04 PENICILLINS; iw - PMHx: 17:04 Anxiety; breast cancer; Osteoporosis; iw - Immunization history:: Client reports receiving the 2nd dose of the Covid vaccine. - Social history:: Smoking status: unknown. ROS: 17:25 MS/extremity: Positive for pain, swelling, tenderness, of the right hand. cp 17:25 Constitutional: Negative for body aches, chills, fever. cp 17:25 Neuro: Negative for numbness, tingling. 17:25 All other systems are negative. Exam: 17:30 Constitutional: The patient appears in no acute distress, alert, awake, well developed, cp well nourished, uncomfortable. 17:30 Musculoskeletal/extremity: Extremities: grossly normal except: noted in the palm of cp right hand: swelling, tenderness along flexor tendon of right middle finger, ROM: limited active range of motion, in the right middle finger with flexion, Perfusion: the extremity is normally perfused throughout, the right hand Sensation intact. 17:30 Skin: cellulitis, is not appreciated, no rash present. Vital Signs: 17:02 BP 131 / 83; Pulse 78; Resp 16; Temp 98.4; Pulse Ox 100% on R/A; iw Procedures: 19:00 Splinting: Splint applied to right hand using Orthoglass splint, volar type splint. cp applied by tech. Examined by me, post splint application: neurovascular intact, Patient tolerated well. MDM: 17:10 Patient medically screened. cp 18:00 Differential diagnosis: closed fracture, tendonitis, tendon rupture. cp 18:31 Data reviewed: vital signs, nurses notes, radiologic studies, plain films. Test cp interpretation: by ED physician or midlevel provider: plain radiologic studies. Counseling: I had a detailed discussion with the patient and/or guardian regarding: the historical points, exam findings, and any diagnostic results supporting the discharge/admit diagnosis, radiology results, the need for outpatient follow up, for definitive care, a hand specialist. Response to treatment: the patient's symptoms have mildly improved after treatment, and as a result, I will discharge patient. 08/09 17:16 Order name: XRAY Hand RIGHT 3 View; Complete Time: 18:23 cp 08/09 18:31 Order name: Splint: right hand volar splint; Complete Time: 18:53 cp Administered Medications: 17:23 Drug: Ibuprofen 800 mg Route: PO; ss 18:53 Follow up: Response: No adverse reaction ss 17:23 Not Given (Patient Refused): Hydrocodone-Acetaminophen (7.5 mg-325 mg) 1 tabs PO once; ss RASS on ADMIN: Combtv4, Very Agttd3, Agttd2, Rstlss1, AlertClm0, Drwsy-1, Lt Sdtn-2, Mod Sdtn-3, Dp Sdtn-4, UnArsble-5 Disposition Summary: 08/09/21 18:33 Discharge Ordered Location: Home cp Problem: new cp Symptoms: have improved cp Condition: Stable cp Diagnosis - Pain in right hand cp Followup: cp - With: Wiley Orlando MD - When: 2 - 3 days - Reason: Recheck today's complaints Discharge Instructions: - Discharge Summary Sheet cp - Hand Pain cp Forms: - Medication Reconciliation Form cp - Thank You Letter cp - Antibiotic Education cp - Prescription Opioid Use cp Prescriptions: - Ibuprofen 800 mg Oral Tablet - take 1 tablet by ORAL route every 8 hours As needed take with food; 30 tablet; cp Refills: 0, Product Selection Permitted Signatures: Dispatcher MedHo Leonila Chavira RN RN iw Smirch, Shelby, RN RN ss Nii Burgos PA PA cp Corrections: (The following items were deleted from the chart) 08/10 18:33 08/09 17:20 Context: The problem was sustained at home, resulted from cp cp 08/10 18:34 18:29 MS/extremity: Positive for pain, swelling, tenderness, of the right hand, cp cp
[2021-08-09 20:52] VITALS: BP 131/83; TEMP 98.4; O2SAT 100
== END 2021-08-09 18:59 | disposition home or self-care (01) ==
LOC: ER 16:52
DX: M79.641 Pain in right hand (principal); F41.9 Anxiety disorder, unspecified; Z85.3 Personal history of malignant neoplasm of breast; Z88.0 Allergy status to penicillin; Z88.3 Allergy status to other anti-infective agents
CPT/HCPCS: 99284

== ENCOUNTER 2022-06-12 11:53 | Observation (INO) | payer OTHER ==
--- OUTSIDE RECORDS SUMMARY | 2022-06-12 11:57 | XMS REPORT | Continuity of Care Document ---
:1965 Author Organization [facility] t Address [address] [place] [address] [place] [id number] Care Team Providers Name Role Phone Neeru Juan Mays Primary Care Physician Fanny Bear Attending Clinician Unknown, Attending Attending Clinician Unavailable FANNY DEMPSEY Attending Clinician Unavailable VALERIE HERNANDEZ Attending Clinician Unavailable Reginald Sandoval Attending Clinician REGINALD SANTILLAN Attending Clinician Unavailable Doctor Unassigned, [place] Attending Clinician Unavailable MANA Attending Clinician Unavailable Pillo Attending Clinician Unavailable Arvind Saldaña MD Attending Clinician DILAN BEARD Attending Clinician Unavailable MANA Admitting Clinician Unavailable Pillo Admitting Clinician Unavailable Payers Payer Name Policy Type Policy Number Effective Date Expiration Date S abe MEDICARE PART A [id number] 2010 \T\ B 00:00:00 [place] B-[place]: [id number] 2010 [employer] 00:00:00 Problems Condition Condition Condition Status Onset Resolution Last Treating Co mments Source Name Details Category Date Date Treatment Clinician Date No known No known Disease Unive rs active active ity of problems problems [facility]ly [facility] Allergies, Adverse Reactions, Alerts Allergy Allergy Status Severity Reaction(s) Onset Inactive Treating Comm ents Source Name Type Date Date Clinician Penicill Propensi Active Swelling Univ ers ins ty to 1-10 ity of adverse 00:00: [place] reaction [address] [place] [address] Branch Quinolon Propensi Active Hives 2020-0 Univer s es ty to 1-10 ity of adverse 00:00: [place] reaction 00 Medical s Branch AZITHROM DRUG Active Rash 2020-0 Univers YCIN INGREDI 1-10 ity of 00:00: [place] 00 Medical Branch PENICILL Drug Active Swelling 2020-0 Univer s INS Class 1-10 ity of 00:00: [place] 00 Medical Branch QUINOLON Drug Active Hives 2020-0 Univers ES Class 1-10 ity of 00:00: [place] 00 Medical Branch SERTRALI DRUG Active Hives 2020-0 Univers NE INGREDI 1-10 ity of 00:00: [place] 00 Medical Branch Penicill Propensi Active Swelling 2020-0 Univ ers ins ty to 1-10 ity of adverse 00:00: [place] reaction 00 Medical s Branch Quinolon Propensi Active Hives 2020-0 Univer s es ty to 1-10 ity of adverse 00:00: [place] reaction 00 Medical s Branch Azithrom Propensi Active Rash 2020-0 Univer s ycin ty to 1-10 ity of adverse 00:00: [place] reaction 00 Medical s Branch Sertrali Propensi Active Hives 2020-0 Univer s ne ty to 1-10 ity of adverse 00:00: [place] reaction 00 Medical s Branch Social History Social Habit Start Date Stop Date Quantity Comments Source Exposure to 2022-05-13 2022-05-23 Not sure [facility] SARS-CoV-2 00:00:00 19:44:00 [facility] (event) [facility] Tobacco use and 2019-04-15 2019-04-15 Smokeless tobacco Un iversity of exposure 00:00:00 00:00:00 non-user [facility] Sex Assigned At [birth year] Universit y of 00:00:00 00:00:00 [facility] Smoking Status Start Date Stop Date Source Never smoked tobacco [facility] Medications Ordered Filled Start Stop Current Ordering Indication Dosage Frequency Signature Comments Components Source Medication Medication Date Date Medication? Clinician (SIG) Name Name billie 2022- Yes [id number] 3{tbl} Take 3 Univers r-ritonavir -05-29 tablets by i ty of (PAXLOVID, 00:00[place] 05:59 [place] EUA[place] 300 00 :00 the Medical mg (150 mg morning Branch x 2)-100 mg and 3 tablet tablets in the evening. Do all this for 5 days. nirmatrelvi 2022- Yes [id number] 3{tbl} Take 3 Univers r-ritonavir 2-17 02-23 tablets by i ty of (PAXLOVID, 00:00: 05:59 [place] EU[place] 300 00 :00 the Medical mg (150 mg morning Branch x 2)-100 mg and 3 tablet tablets in the evening. Do all this for 5 days. nirmatrelvi 2022- Yes [id number] 3{tbl} Take 3 Univers r-ritonavir 2-17 02-23 tablets by i ty of (PAXLOVID, 00:00: 05:59 [place] 300 00 :00 the Medical mg (150 mg morning Branch x 2)-100 mg and 3 tablet tablets in the evening. Do all this for 5 days. methylPREDN 2-0 Yes [id number] 84mg Take 21 Univers ISolone 5-24 tablets by ity of (MEDROL, 00:00: mouth [place] ANIBAL,) 4 mg 00 SEE-INSTRU Med ical tablets CTIONS. Branch follow package directions methylPREDN 2-0 Yes [id number] 84mg Take 21 Univers ISolone 5-24 tablets by ity of (MEDROL, 00:00: mouth [place] ANIBAL,) 4 mg 00 SEE-INSTRU Med ical tablets CTIONS. Branch follow package directions methylPREDN 2-0 Yes [id number] 84mg Take 21 Univers ISolone 5-24 tablets by ity of (MEDROL, 00:00: mouth [place] ANIBAL,) 4 mg 00 SEE-INSTRU Med ical tablets CTIONS. Branch follow package directions methylPREDN 2022-0 Yes [id number] 84mg Take 21 Univers ISolone 5-24 tablets by ity of (MEDROL, 00:00: mouth [place] ANIBAL,) 4 mg 00 SEE-INSTRU Med ical tablets CTIONS. Branch follow package directions tamsulosin 2019-0 Yes [id number] .4mg Take 1 Univers 0.4 mg 24 8-18 capsule by ity of hr capsule 00:00: mouth at [place] as 00 bedtime. Medical Branch tamsulosin 2020-0 Yes [id number] .4mg Take 1 Univers 0.4 mg 24 8-18 capsule by ity of hr capsule 00:00: mouth at [place] as 00 bedtime. Medical Branch tamsulosin 2020-0 Yes [id number] .4mg Take 1 Univers 0.4 mg 24 8-18 capsule by ity of hr capsule 00:00: mouth at [place] as 00 bedtime. Medical Branch tamsulosin 2020-0 Yes [id number] .4mg Take 1 Univers 0.4 mg 24 8-18 capsule by ity of hr capsule 00:00: mouth at [place] as 00 bedtime. Medical Branch montelukast 2019-0 Yes Singulair U nivers (SINGULAIR) 1-23 10 mg ity of 10 mg 14:29: tablet [place] tablet 27 Take 1 Medical tablet as Branch needed by oral route. simvastatin 2019-0 Yes simvastati Univers 20 mg 1-23 n 20 mg ity of tablet 14:29: tablet [address] albuterol 2019-0 Yes 3mL 3 mL. Univers 1.25 mg/3 1-23 ity of mL 14:29: [place] nebulizer Medical solution [facility] albuterol 0 Yes ProAir HFA Un tiffany (PROAIR 04-28 90 ity of HFA) 90 14:29: mcg[place]actuat [place] mcg/actuati 27 [facility] on inhaler aerosol Branch inhaler Inhale 2 puffs every 4 hours by inhalation route as needed for 30 days. alendronate 2019-0 Yes alendronat Univers 70 mg 1-23 e 70 mg ity of tablet 14:29: tablet [address] montelukast 2019-0 Yes Singulair U nivers (SINGULAIR) 1-23 10 mg ity of 10 mg 14:29: tablet [place] tablet 27 Take 1 Medical tablet as Branch needed by oral route. simvastatin 2019-0 Yes simvastati Univers 20 mg 1-23 n 20 mg ity of tablet 14:29: tablet [address] albuterol 2019-0 Yes 3mL 3 mL. Univers 1.25 mg/3 1-23 ity of mL 14:29: [place] nebulizer [address] [place] [address] solution [facility] albuterol 2019-0 Yes ProAir HFA Un tiffany (PROAIR 1-23 90 ity of HFA) 90 14:29: mcg/actuat [place] mcg/actuati 27 ion Medical on inhaler aerosol Branch inhaler Inhale 2 puffs every 4 hours by inhalation route as needed for 30 days. alendronate 2020-0 Yes alendronat Univers 70 mg 1-23 e 70 mg ity of tablet 14:29: tablet [address] Branch montelukast 2020-0 Yes Singulair U nivers (SINGULAIR) 1-23 10 mg ity of 10 mg 14:29: tablet [place] tablet 27 Take 1 Medical tablet as Branch needed by oral route. simvastatin 2020-0 Yes simvastati Univers 20 mg 1-23 n 20 mg ity of tablet 14:29: tablet [address] Branch albuterol 2020-0 Yes 3mL 3 mL. Univers 1.25 mg/3 1-23 ity of mL 14:29: [place] nebulizer Medical solution Branch albuterol 2020-0 Yes ProAir HFA Un tiffany (PROAIR 04-28 90 ity of HFA) 90 14:29: mcg/actuat [place] mcg/actuati 27 ion Medical on inhaler aerosol Branch inhaler Inhale 2 puffs every 4 hours by inhalation route as needed for 30 days. alendronate 2020-0 Yes alendronat Univers 70 mg 1-23 e 70 mg ity of tablet 14:29: tablet [address] montelukast 2020-0 Yes Singulair U nivers (SINGULAIR) 1-23 10 mg ity of 10 mg 14:29: tablet [place] tablet 27 Take 1 Medical tablet as Branch needed by oral route. simvastatin 2020-0 Yes simvastati Univers 20 mg 1-23 n 20 mg ity of tablet 14:29: tablet [address] albuterol 2020-0 Yes 3mL 3 mL. Univers 1.25 mg/3 1-23 ity of mL 14:29: [place] nebulizer Medical solution Branch albuterol 2020-0 Yes ProAir HFA Un tiffany (PROAIR 04-28 90 ity of HFA) 90 14:29: mcg/actuat [place] mcg/actuati 27 ion Medical on inhaler aerosol Branch inhaler Inhale 2 puffs every 4 hours by inhalation route as needed for 30 days. alendronate 2020-0 Yes alendronat Univers 70 mg 1-23 e 70 mg ity of tablet 14:29: tablet [place] [address] Medical Branch VENTOLIN 2020-0 Yes Univers HFA 90 1-13 ity of mcg/actuati 00:00: [place] on inhaler 00 Medical Branch VENTOLIN 2020-0 Yes Univers HFA 90 1-13 ity of mcg/actuati 00:00: [place] on inhaler 00 Medical Branch VENTOLIN 2020-0 Yes Univers HFA 90 1-13 ity of mcg/actuati 00:00: [place] on inhaler 00 Medical Branch VENTOLIN 2020-0 Yes Univers HFA 90 1-13 ity of mcg/actuati 00:00: [place] on inhaler 00 Medical Branch ALPRAZolam 2020-0 Yes Univers 1 mg tablet 1-07 ity of 00:00: [place] [facility] ALPRAZolam 2020-0 Yes Univers 1 mg tablet 1-07 ity of 00:00: [place] [facility] ALPRAZolam 2020-0 Yes Univers 1 mg tablet 1-07 ity of 00:00: [place] [facility] ALPRAZolam 2020-0 Yes Univers 1 mg tablet -07 ity of 00:00: [place] Medical [facility] Vital Signs Vital Name Observation Time Observation Value Comments Source Systolic blood 2022-05-24 01:45:00 137 mm[Hg] Univer sity of pressure [facility] Diastolic blood 2022-05-24 01:45:00 84 mm[Hg] Unive rsity of [facility] Heart rate 2022-05-24 01:45:00 71 /min [facility] Body temperature 2022-05-24 01:45:00 37.22 Katelin [facility] Respiratory rate 2022-05-24 01:45:00 17 /min [facility] Body height 2022-05-24 01:45:00 170.2 cm [facility] Body weight 2022-05-24 01:45:00 84.823 kg [facility] BMI 2022-05-24 01:45:00 29.29 kg/m2 [facility] Oxygen saturation in 2022-05-24 01:45:00 98 /min [facility] Arterial blood by [facility] Pulse oximetry Branch Systolic blood 2021-08-27 21:06:00 103 mm[Hg] Univer sity of pressure [facility] Diastolic blood 2021-08-27 21:06:00 69 mm[Hg] Unive rsity of pressure [facility] Heart rate 2021-08-27 21:06:00 86 /min [facility] Body height 2021-08-27 21:06:00 170.2 cm [facility] Body weight 2021-08-27 21:06:00 80.423 kg [facility] BMI 2021-08-27 21:06:00 27.77 kg/m2 [facility] Oxygen saturation in 2021-08-27 21:06:00 100 /min [facility] Arterial blood by [facility] Pulse oximetry [facility] Procedures Procedure Date / Time Performed Performing Clinician Sourc e POCT SARS-COV-2 2022-05-24 01:54:00 [facility] [place] ANTIGEN (BINAX NOW) Medical Bran ch Encounters Start End Encounter Admission Attending Care Care Encounter Source Date/Time Date/Time Type Type Clinicians Facility Department ID 2021-02-01 Emergency [facility] [id number] [facility] 12:59:36 ity [facility] 2022-05-28 2022-05-28 [facility] [id number] [facility] 00:00:00 00:00:00 [facility] [id number] it y of [place] [id number] [place] as LIA?BLEA [id number] [address] MEDICAL OFFICE [facility] 2022-05-24 2022-05-24 [facility] [id number] [facility] 00:00:00 00:00:00 [facility] [id number] it y of [place] [id number] [place] as LIA?BLEA [id number] [address] MEDICAL OFFICE [facility] 2022-05-23 2022-05-23 Urgent [facility] [id number] Univers 19:40:00 20:00:00 Care Unknown, Attending HEALTH [id number] ity of [place] [id number] [place] as LIA?BLEA [id number] Ut samantha VO [address] [facility] OFFICE [facility] 2022-05-23 2022-05-23 Outpatient R A[place]EN [facility] [id number] Univers 19:40:00 19:40:00 ENOCHEdisonSamuel [facility] 2021-08-27 2021-08-27 Outpatient R MARY [facility] [id number] Univers 16:13:09 23:59:00 VALERIE [facility] 2021-08-27 2021-08-[address] [facility] [id number] Univers 16:00:00 16:15:00 Visit [facility] [id number] it y of [place] [id number] [place] as LIA?BLEA [id number] Ut samantha VO [address] [facility] OFFICE [facility] 2021-08-27 2021-08-27 [facility] [id number] Univers 16:00:00 16:00:00 [facility] 2021-08-27 2021-08-27 Orders Doctor GABRIEL [id number] Univers 00:00:00 00:00:00 Only Unassigned, HAL [id number] ity of [place] [facility] [id number] [place] as [id number] [facility] 009 [place] 2021-05-01 2021-05-01 Outpatient AMBREEN_FAR [facility] [id number] [place] 04:40:00 04:40:00 VALE 0126 da [facility] Outreac h Program 2020-10-03 2020-10-03 [place] [id number] [place] 12:14:00 12:14:00 0630 Medical Group 2019-11-22 2019-11-[address] [facility] [id number] Univers 05:23:00 07:42:00 Arvind Wu [id number] i ty of [place] [id number] [place] [facility] [id number] [address] 2019-11-22 2019-11-22 [facility] [id number] 05:23:00 07:42:00 Arvind Wu [id number] [place] 4.2.7.2.686 [place] [id number] [facility] 2019-11-22 2019-11-22 Orders Doctor GABRIEL [id number] Univers 00:00:00 00:00:00 Only Unassigned, HAL [id number] ity of [place] [facility] [id number] [place] as [id number] [address] 2019-11-22 2019-11-22 Orders Doctor GABRIEL [id number] 00:00:00 00:00:00 Only Unassigned, HAL [id number] [place] [facility] [id number] [id number] 009 2019-05-11 2019-05-11 Orders Doctor RIOS [id number] 00:00:00 00:00:00 Only Unassigned, HAL [id number] [place] [facility] [id number] [id number] 009 2019-05-11 2019-05-11 Orders Doctor RIOS [id number] Univers 00:00:00 00:00:00 Only Unassigned, HAL [id number] ity of [place] [facility] [id number] [place] as [id number] [address] 2019-04-28 2019-04-[address] [facility] [id number] 14:21:09 14:36:09 Visit [facility] [id number] Surgical [id number] Specialti [id number] keisha Phelan Bryce 2019-04-28 2019-04-[address] [facility] [id number] Univers 14:21:09 14:36:09 Visit [facility] [id number] it y of Surgical [id number] [place] as Specialti [id number] Ut dical es [address] [place] 2019-04-15 2019-04-15 Outpatient R KISHA [facility] [id number] Univers 19:36:52 23:59:00 DILAN friedman [facility] 2017-03-10 2017-03-10 Outpatient Brown_R MMG MMG [id number] [place] 12:26:00 12:26:00 0721 da Medical Group Results Test Description Test Time Test Comments Results Result Comments Source POCT SARS-COV-2 ANTIGEN (BINAX NOW) 2022-05-24 01:54:00 Test Item Value Reference Range Interpretation Comme nts POCT SARS-COV-2 ANTIGEN (test code Positive Not Detected A = 58001-2) On board controls acceptable with Yes C Line (test code = 3574) JONATHAN (test code = JONATHAN) accurate development and interpretation of all internal controls Lab Interpretation (test code = Abnormal 69421-8) [facility]
[2022-06-12] MEDS ORDERED: NITROGLYCERIN 0.4 MG/TAB SL ONE (12:46)
[2022-06-12] MEDS ORDERED: ONDANSETRON 4 MG/2 ML VIAL ONE (12:46)
[2022-06-12] MEDS ORDERED: MORPHINE 4 MG/ML SYR ONE (12:46)
[2022-06-12] MEDS ORDERED: ASPIRIN 81 MG CHEWABLE TABLET ONE (12:46)
[2022-06-12 13:14] LABS: Absolute Lymphocytes (CBC) 1.5 K/uL (0.7-4.9); Hematocrit 35.8 % (36.0-45.0); MCV 85.4 fL (80-100); MPV 7.5 fL (7.6-11.3); RBC Red Blood Cell Count 4.19 M/uL (3.86-4.86)
--- NOTE | 2022-06-12 13:19 | RAD REPORT ---
EXAM DESCRIPTION: RAD - Chest Single View - 06/12/2022 1:12 pm CLINICAL HISTORY: CHEST PAIN Chest pain. COMPARISON: Chest Single View dated 09/10/2020; Chest Single View dated 05/22/2016; ABDOMEN 1 VIEW KUB dated 04/14/2013 FINDINGS: Portable technique limits examination quality. Interstitial markings are mildly prominent which may represent viral infection or interstitial pulmon tamiko edema. The heart is normal in size. No displaced fractures.
[2022-06-12 13:22] LABS: SARS-CoV-2 Antigen Rapid Res Negative (Negative)
[2022-06-12 13:22] LABS: Protime INR 0.93
[2022-06-12 13:40] LABS: Albumin 3.7 g/dL (3.4-5.0); Bilirubin Direct 0.1 mg/dL (0-0.2); Bilirubin Total 0.5 mg/dL (0.2-1.0); Magnesium 2.2 mg/dL (1.6-2.4); Potassium 3.6 mmol/L (3.5-5.1); Protein, Total 7.4 g/dL (6.4-8.2)
--- NOTE | 2022-06-12 14:24 | RAD REPORT ---
EXAM DESCRIPTION: CT - Chest For Pe Angio - 06/12/2022 2:17 pm CLINICAL HISTORY: Chest pain. CHEST PAIN COMPARISON: Chest For Pe Angio dated 09/10/2020 TECHNIQUE: CT angiogram of the pulmonary arteries was performed with MIP. All CT scans are performed using dose optimization technique as appropriate and may include automated exposure control or mA/KV adjustment according to patient size. FINDINGS: No evidence of pulmonary thromboembolism. No acute aortic finding demonstrated. The lungs are clear. No significant pericardial or pleural fluid. No concerning bony finding. IMPRESSION: No evidence of pulmonary thromboembolism. No acute lung findings.
[2022-06-12] MEDS ORDERED: ONDANSETRON 4 MG/2 ML VIAL IV PRN (15:50)
[2022-06-12] MEDS ORDERED: MORPHINE 2 MG/ML SYR IV PRN (15:50)
[2022-06-12] MEDS ORDERED: ACETAMINOPHEN 500 MG TAB PO PRN (15:50)
[2022-06-12] MEDS ORDERED: ALPRAZOLAM 0.25 MG TABLET PO PRN (15:53)
[2022-06-12] MEDS ORDERED: SUMATRIPTAN SUCCI 50 MG TAB PO PRN (15:53)
--- NOTE | 2022-06-12 16:04 | P.HP ---
Certification for Inpatient Patient admitted to: Observation With expected LOS: <2 Midnights Patient will require the following post-hospital care: None Practitioner: I am a practitioner with admitting privileges, knowledge of patient current condition, hospital course, and medical plan of care. Services: Services provided to patient in accordance with Admission requirements found in Title 42 Section 412.3 of the Code of Federal Regulations Patient History Date of Service: 06/12/22 Primary Care Provider: Jocelynn Reason for admission: Chest pain History of Present Illness: This is a 56-year-old female with prior past medical history of breast cancer, chronic back pain, migraine, anxiety, hyperlipidemia, and TIA in 2008. Patient presents to the emergency with complaints of chest pain. Patient reports symptoms started this morning in the substernal area radiating to the back and left arm. Patient reports 10 out of 10 chest pain that is sharp crushing. She reports additional symptoms of shortness of breath and nausea. Symptoms are aggravated by anything and relieved by nothing. She does report having a lot of stress in her life and she tends to worry a lot. Patient does have a history of anxiety and is on Xanax 0.25 mg at home. ER labs were significant for D-dimer of 833. CTA chest was negative for any PE. Patient was treated with nitro, morphine and aspirin in the ER. Patient reports improvement in symptoms. Patient will be admitted under care of Dr. Easley. Cardiology will be consulted for further recommendations. Will trend troponin, and order echo. Allergies azithromycin Allergy (Verified 09/11/20 02:45) Itching/Hives/Rash levofloxacin [From Levaquin] Allergy (Verified 09/11/20 02:45) Itching/Hives/Rash Penicillins Allergy (Verified 05/09/12 15:37) Anaphylaxis Home Medications: ALPRAZolam [Xanax*] 0.25 mg PO QID 09/11/20 Albuterol Inhaler [Ventolin Inhaler*] 1 puff IH PRN PRN 09/11/20 Buprenorphine HCl/Naloxone HCl [Suboxone 8 mg-2 mg Sl Film] 8 mg SL BID 09/11/20 Dextroamphetamine/Amphetamine [Adderall 15 mg Tablet] 15 mg PO PRN PRN 09/11/20 Pantoprazole [Protonix Tab*] 40 mg PO DAILYAC #30 tab 09/11/20 Sumatriptan [Imitrex*] 50 mg PO PRN PRN 09/11/20 - Past Medical/Surgical History Diabetic: No -: breast cancer -: anxiety -: osteoporosis -: Hyperlipidemia -: chronic pain -: TIA-2008 -: arthritis-neck and lower back -: slipped disks-lower back -: dbl mastectomy -: appy -: hyterectomy -: neck fusion Psychosocial/ Personal History: Lives with family - Social History Smoking Status: Former smoker Alcohol use: No CD- Drugs: No Caffeine use: Yes Place of Residence: Home Review of Systems 10-point ROS is otherwise unremarkable General: Weakness Respiratory: Shortness of Breath Cardiovascular: Chest Pain Gastrointestinal: Nausea Physical Examination - Vital Signs Temperature: 97.8 F Blood Pressure: 118/86 Pulse: 69 Respirations: 20 Pulse Ox (%): 99 - Physical Exam General: Alert, In no apparent distress, Oriented x3 HEENT: Atraumatic, Normocephalic, PERRLA Neck: Supple, 2+ carotid pulse no bruit Respiratory: Clear to auscultation bilaterally, Normal air movement Cardiovascular: No edema, Normal pulses, Regular rate/rhythm Capillary refill: <2 Seconds Gastrointestinal: Normal bowel sounds Musculoskeletal: No clubbing, No swelling, No contractures Integumentary: No rashes, No breakdown Neurological: Normal speech, Normal strength at 5/5 x4 extr, Normal tone Lymphatics: No axilla or inguinal lymphadenopathy - Studies Laboratory Data (last 24 hrs) 06/12/22 13:05: PT 10.2, INR 0.93 06/12/22 13:05: WBC 5.40, Hgb 12.0, Hct 35.8 L, Plt Count 257 06/12/22 13:05: Sodium 139, Potassium 3.6, BUN 13, Creatinine 0.62, Glucose 123 H, Magnesium 2.2, Total Bilirubin 0.5, AST 27, ALT 33, Alkaline Phosphatase 76 Assessment and Plan - Plan Assessment Chest pain rule out ACS Chronic back pain Elevated D-dimer Anxiety Hyperlipidemia History of TIA History of migraine Plan Chest pain rule out ACS Stable, continue telemetry Initial troponin negative, will trend 2 more Cardiology consulted, recommendations appreciated Echo pending Continue aspirin and statin Chronic back pain Continue home medications Elevated D-dimer CTA chest negative for PE Anxiety Continue home medication Hyperlipidemia Continue home medication History of TIA Continue aspirin and statin DVT PPX- Heparin sbuq Code status- Full code Discharge Plan: Home Plan to discharge in: 48 Hours - Advance Directives Does patient have a Living Will: No Does patient have a Durable POA for Healthcare: No - Code Status/Comfort Care Code Status Assessed: Yes (Full code) Critical Care: No Time Spent Managing Pts Care (In Minutes): 50
[2022-06-12] MEDS ORDERED: NIRMATRELVIR/RITONAVIR TABLET PO SCH (16:15)
[2022-06-12 16:20] VITALS: BMI 29.7
[2022-06-12] MEDS: HEPARIN 5000 UNIT/ML 1 ML VIAL SQ SCH (17:00)
[2022-06-12] MEDS ORDERED: HEPARIN 5000 UNIT/ML 1 ML VIAL ONE (18:35)
--- NOTE | 2022-06-12 18:35 | CON ---
Date of Consultation: 06/12/2022 Reason For Consultation: Chest pain. History Of Present Illness: A 56-year-old female, history of breast cancer, migraines, dyslipidemia, TIA, presented to emergency room with chest pain started this morning. It is retrosternal, radiates to the back and the left arm, was sharp in nature, completely resolved. Denies having any shortness of breath and does not have any chest pain at the present time. Past Medical History: As outlined above in HPI. Medications: Refer to reconciliation sheet for detailed list. Allergies: AZITHROMYCIN, LEVOFLOXACIN, AND PENICILLIN. Family History: No premature coronary artery disease or cancer. Social History: She is an ex-smoker. Does not drink or use any drugs. Review of Systems: All systems reviewed and they were negative except what mentioned in HPI. Physical Examination: Vital Signs: Reviewed. Head and Neck: Pupils are equal, reactive to light. Intact eye movements. No JVD. No cervical lym phadenopathy. Neck is supple. Thyroid is not enlarged. Lungs: Clear to auscultation bilaterally. No rhonchi, wheezing, or crackles. No accessory muscle u se. Heart: Regular rate and rhythm. No extra sounds. Abdomen: Soft, nontender. Bowel sounds positive. No organomegaly. No masses or hernia. No rigidi ty or rebound. Extremities: There is no edema, clubbing, or cyanosis. Intact pulses. Skin: No rash. Neurologic: Alert, awake, oriented x3. No acute focal deficits appreciated. Lymph Nodes: No cervical or axillary lymphadenopathy. Investigations: First troponin is negative. BUN 13, creatinine 0.6, and hemoglobin is 12. Assessment And Recommendations: 1.Chest pain. It is atypical in nature. First troponin is negative. Repeat 2 more sets of cardiac enzymes. If they remain negative, then outpatient stress test. If troponin rises, then we will paul n for a coronary angiogram. Of note, CT per PE protocol was negative for pulmonary embolism. 2.Dyslipidemia. Continue Lipitor. SR/MODL Voice ID: [id number] Report ID: [id number]
[2022-06-12] MEDS ORDERED: ATORVASTATIN 40 MG TAB PO SCH (21:00)
[2022-06-13] MEDS: HEPARIN 5000 UNIT/ML 1 ML VIAL SQ SCH ×2 (00:05→08:51)
[2022-06-13 01:53] VITALS: O2SAT 96
[2022-06-13 02:59] LABS: Urine Bacteria <20 /HPF (<20); Urine Bilirubin NEGATIVE (Negative); Urine Blood Negative (Negative); Urine Clarity Clear (Clear); Urine Color Light-Yellow (Yellow); Urine Glucose NEGATIVE (Negative); Urine Mucus 1+ /HPF (None Seen); Urine Protein TRACE (Negative); Urine RBC <5 /HPF (None Seen); Urine Urobilinogen Normal (Normal)
[2022-06-13 05:04] LABS: Absolute Lymphocytes (CBC) 2.8 K/uL (0.7-4.9); Hematocrit 33.6 % (36.0-45.0); Lymphocytes % 45.1 % (15.3-44.8); MCV 85.6 fL (80-100); MPV 8.2 fL (7.6-11.3); RBC Red Blood Cell Count 3.93 M/uL (3.86-4.86)
[2022-06-13 05:19] LABS: Potassium 3.6 mmol/L (3.5-5.1)
[2022-06-13] MEDS ORDERED: POTASSIUM CL SA 10 MEQ TAB PO ONE ×2 (05:25→09:00)
[2022-06-13] MEDS ORDERED: PANTOPRAZOLE 40MG TABLET PO SCH (07:30)
[2022-06-13 08:20] VITALS: TEMP 96.8
[2022-06-13] MEDS ORDERED: ASPIRIN 81 MG CHEWABLE TABLET PO SCH (09:00)
[2022-06-13 12:18] VITALS: BP 124/67
--- NOTE | 2022-06-13 13:55 | ECHO ---
HEIGHT: 5 ft 7 in WEIGHT: 189 lb 15.91 oz DATE OF STUDY: 06/13/[address]: Romero Evans NP 2-DIMENSIONAL: YES M.MODE: YES DOPPLER: YES COLOR FLOW: YES TDS: NO PORTABLE: YES DEFINITY: NO BUBBLE STUDY: NO DIAGNOSIS: CHEST PAIN CARDIAC HISTORY: CATHERIZATION: NO SURGERY: NO PROSTHETIC VALVE: NO PACEMAKER: NO MEASUREMENTS (cm) DIASTOLIC (NORMALS) SYSTOLIC (NORMALS) IVSd 0.8 (0.6-1.2) LA Diam 2.2 (1.9-4.0) LVEF 63% LVIDd 4.2 (3.5-5.7) LVIDs 2.8 (2.0-3.5) %FS 34% LVPWd 1.0 (0.6-1.2) Ao Diam 2.5 (2.0-3.7) 2 DIMENSIONAL ASSESSMENT: RIGHT ATRIUM: NORMAL LEFT ATRIUM: NORMAL RIGHT VENTRICLE: NORMAL LEFT VENTRICLE: NORMAL TRICUSPID VALVE: MILD TR MITRAL VALVE: NORMAL PULMONIC VALVE: NORMAL AORTIC VALVE: NORMAL PERICARDIAL EFFUSION: TRACE AORTIC ROOT: NORMAL LEFT VENTRICULAR WALL MOTION: NORMAL DOPPLER/COLOR FLOW: MILD TRICUSPID REGURGITATION. COMMENTS: 1. POOR WINDOWS. 2. NORMAL LEFT VENTRICULAR EJECTION FRACTION 60-65%. 3. MILD TRICUSPID REGURGITATION. TECHNOLOGIST: Zakiya HAMMONDS
--- NOTE | 2022-06-16 13:17 | EKG ---
Test Date: 2022-06-12 Test Time: 12:18:03 Microphone Boom Operator: HB MEASUREMENT RESULTS: Intervals: Rate: 76 NM: 150 QRSD: 76 QT: 390 QTc: 438 Holt: P: 79 NM: 150 QRS: 46 T: 45 INTERPRETIVE STATEMENTS: Normal sinus rhythm Normal ECG Compared to ECG 09/10/2020 13:52:01 No significant changes Electronically Signed On 06-16-22 13:09:26 CDT by Connor Mak
== END 2022-06-13 12:25 | disposition home or self-care (01) ==
LOC: ER 11:53 → ERHOLD 15:48 → 4TH 17:33
PROVIDERS: ADMIT Hospitalist; ATTEND Hospitalist
DX: R07.9 Chest pain, unspecified (principal); R79.89 Other specified abnormal findings of blood chemistry; M54.9 Dorsalgia, unspecified; E78.5 Hyperlipidemia, unspecified; F41.9 Anxiety disorder, unspecified; G43.909 Migraine, unspecified, not intractable, without status migrainosus; Z86.73 Personal history of transient ischemic attack (TIA), and cerebral infarction without residual deficits; Z85.3 Personal history of malignant neoplasm of breast; Z88.0 Allergy status to penicillin; Z88.3 Allergy status to other anti-infective agents; Z87.891 Personal history of nicotine dependence; Z20.822 Contact with and (suspected) exposure to COVID-19
CPT/HCPCS: 93005; 93306; 85025 ×2; 81001; 80048 ×2; 36415; 83735; 85610; 80061; 85379; 80076; 84484 ×3; 83880; 71275; 71045; 96375; 96374; 99285; 87811; Q9967; J1644 ×3; J2405